=== PATIENT | female | born 1985 | race Caucasian/White ===

== ENCOUNTER 2019-07-05 21:03 | Emergency (ER) | payer OTHER, SELFPAY ==
--- NOTE | 2019-07-05 22:44 | ER ---
Nurse's Notes [facility] Name: Emerald Alejandro Age: 34 yrs Sex: Female : 1985 Arrival Date: 07/05/2019 Time: 21:07 Bed Waiting Private MD: Diagnosis: ED Course: 07/05 21:07 Patient arrived in ED. am2 21:49 Patient's name was called from ER lobby. No response. pipo 21:55 Harmony Hernandez, RN is Primary Nurse. ca1 22:00 Patient's name was called from ER lobby. No response. bb 22:43 Patient's name was called from ER lobby. No response. Unable to locate patient. Will bb disposition as left without being seen by a provider. Administered Medications: No medications were administered Outcome: 22:43 Patient left the ED. bb Signatures: Carissa Coles RN RN ajAnnmarie Coronado RN RN bb Lydia Moore am2 Harmony Hernandez, RN RN ca1
== END 2019-07-05 22:43 | disposition left against medical advice (07) ==
LOC: ER 21:03
DX: Z02.9 Encounter for administrative examinations, unspecified (principal)

== ENCOUNTER 2019-12-21 09:54 | Emergency (ER) | payer SELFPAY ==
--- OUTSIDE RECORDS SUMMARY | 2019-12-21 09:56 | XMS REPORT ---
:1985 [facility] Address [address] [place] [address] Dr. Castañeda. [address] [place] [id number] Care Team Providers Name Role Phone DR ISIS CASTREJON Unavailable Unavailable TRACEY LAMB Unavailable Unavailable Problems This patient has no known problems. Allergies, Adverse Reactions, Alerts This patient has no known allergies or adverse reactions. Medications This patient has no known medications. Encounters Start End Encounter Admission Attending Care Care Encounter Date/Time Date/Time Type Type Clinicians Facility Department ID 2019-04-15 2019-04-15 Emergency E [facility] [id number] 10:36:00 10:36:00 2019-02-08 2019-02-08 Emergency E [facility] [id number] 13:12:00 13:12:00 2018-03-28 2018-03-28 Outpatient [facility] [id number] 08:23:00 10:35:00 ISIS Results Test Description Test Time Test Comments Text Results Atomic Results Result Comments CBC W/PLT COUNT & AUTO DIFFERENTIAL 2017-06-17 17:45:00 Test Item Value Reference Range Comments WHITE BLOOD CELL COUNT (BEAKER) (test rtwl=728) 6.2 K/ L 4.0-10.0 RED BLOOD CELL COUNT (BEAKER) (test nmni=966) 5.00 M/ L 4.00-5.00 HEMOGLOBIN (BEAKER) (test kkoy=488) 12.0 GM/DL 12.0-15.0 HEMATOCRIT (BEAKER) (test rpxr=851) 37.6 % 36.0-45.0 MEAN CORPUSCULAR VOLUME (BEAKER) (test kzop=997) 75.1 fL 82.0-99.0 MEAN CORPUSCULAR HEMOGLOBIN (BEAKER) (test nwws=235) 24.0 pg 27.0-33.0 MEAN CORPUSCULAR HEMOGLOBIN CONC (BEAKER) (test pbaw=139) 32.0 GM/DL 32.0- 36.0 RED CELL DISTRIBUTION WIDTH (BEAKER) (test vyih=595) 15.1 % 10.3-14.2 PLATELET COUNT (BEAKER) (test iiuw=660) 352 K/CU MM 150-430 MEAN PLATELET VOLUME (BEAKER) (test xhgl=029) 7.7 fL 6.5-10.5 NUCLEATED RED BLOOD CELLS (BEAKER) (test atzs=894) 0 /100 WBC 0-0 NEUTROPHILS RELATIVE PERCENT (BEAKER) (test nndb=930) 68 % LYMPHOCYTES RELATIVE PERCENT (BEAKER) (test ovrl=607) 25 % MONOCYTES RELATIVE PERCENT (BEAKER) (test jufv=096) 5 % EOSINOPHILS RELATIVE PERCENT (BEAKER) (test bhvo=312) 1 % BASOPHILS RELATIVE PERCENT (BEAKER) (test uidr=592) 1 % NEUTROPHILS ABSOLUTE COUNT (BEAKER) (test bjjt=488) 4.20 K/ L 1.80-8.00 LYMPHOCYTES ABSOLUTE COUNT (BEAKER) (test xilr=574) 1.60 K/ L 1.48-4.50 MONOCYTES ABSOLUTE COUNT (BEAKER) (test jkci=477) 0.30 K/ L 0.00-1.30 EOSINOPHILS ABSOLUTE COUNT (BEAKER) (test iuxw=670) 0.10 K/ L 0.00-0.50 BASOPHILS ABSOLUTE COUNT (BEAKER) (test pfss=253) 0.00 K/ L 0.00-0.20 (MANUAL DIFFERENTIAL)2017-06-17 17:45:00 Test Item Value Reference Range Comments TOTAL COUNTED (BEAKER) (test kijw=6589) WBC MORPHOLOGY (BEAKER) (test tmkp=222) Normal PLT MORPHOLOGY (BEAKER) (test crho=166) Normal ELLIPTOCYTES (BEAKER) (test whky=235) 1+ few HYPOCHROMIA (BEAKER) (test rlcm=795) 1+ few COMPREHENSIVE METABOLIC [id number] 16:26:00 Test Item Value Reference Range Comments TOTAL PROTEIN (BEAKER) 7.9 gm/dL 6.0-8.5 (test qjty=176) ALBUMIN (BEAKER) (test 4.0 g/dL 3.5-5.0 inje=0573) ALKALINE PHOSPHATASE 76 U/L 30-115 (BEAKER) (test bovx=910) BILIRUBIN TOTAL (BEAKER) 0.3 mg/dL 0.1-1.2 (test hkzt=742) SODIUM (BEAKER) (test 136 meq/L 135-148 odle=748) POTASSIUM (BEAKER) (test 4.2 meq/L 3.6-5.5 hxmq=068) CHLORIDE (BEAKER) (test 105 meq/L 98-106 ujnj=025) CO2 (BEAKER) (test 17 meq/L 20-29 bpel=518) BLOOD UREA NITROGEN 14 mg/dL 10-26 (BEAKER) (test ocap=226) CREATININE (BEAKER) (test 0.80 mg/dL 0.50-1.20 ynwx=838) GLUCOSE RANDOM (BEAKER) 102 mg/dL 70-110 (test soeh=766) CALCIUM (BEAKER) (test 9.6 mg/dL 8.5-10.5 sgmi=385) AST (SGOT) (BEAKER) (test 21 U/L 5-40 bwjm=744) ALT (SGPT) (BEAKER) (test 16 U/L 5-50 sagx=702) EGFR (BEAKER) (test mL/min/1.73 sq m INSUFFICIENT CLINICAL DATA rypl=8205) TO CALCULATE ESTIMATED GFR. [id number] 16:26:00 Test Item Value Reference Range Comments MAGNESIUM (BEAKER) (test dgdb=193) 2.4 mg/dL 1.5-3.0 [id number] 16:26:00 Test Item Value Reference Range Comments PHOSPHORUS (BEAKER) (test mdty=844) 3.6 mg/dL 2.5-4.5 RAPID DRUG SCREEN, [id number] 16:12:00 Test Item Value Reference Range Comments METHAMPHETAMINE SCREEN (BEAKER) (test hros=8030) Negative Negative BARBITURATE URINE (BEAKER) (test qleo=518) Negative Negative BENZODIAZEPINE SCREEN URINE (BEAKER) (test Positive Negative bsnb=572) COCAINE (METAB.) SCREEN (BEAKER) (test asfh=8237) Negative Negative OPIATE SCREEN URINE (BEAKER) (test hfry=772) Positive Negative CANNABINOID SCREEN URINE (BEAKER) (test sjcn=237) Negative Negative AMPHETAMINE SCREEN URINE (BEAKER) (test tfcx=260) Negative Negative PHENCYCLIDINE SCREEN URINE (BEAKER) (test nvbs=105) Negative Negative DRUG CUTOFF CONC.Cocaine 300 ng/mL Cannabinoid 50 ng/mLBenzodiazepine 200 ng/mLBarbiturate 200 ng/ mLPhencyclidine 25 ng/mLOpiate 300 ng/mLMethadone 300 ng/mLAmphetamine/ 1000 ng/mL MethamphetamineThis assay provides an unconfirmed qualitative test result for the clinical management of patients in emergency situations. Chain of custody not maintained. Some tdwp-cck-fdtkpay medications, as well as adulterants, may cause inaccurate results. Clinical correlation should be applied. A more comprehensivedrug screen or confirmation of a detected drug may be performed upon request.URINALYSIS W/ [id number] 16:03:00 Test Item Value Reference Range Comments COLOR (BEAKER) (test ztcv=933) Yellow CLARITY (BEAKER) (test aiap=636) Clear SPECIFIC GRAVITY UA (BEAKER) (test ihck=056) <= 1.001-1.035 PH UA (BEAKER) (test tlrd=940) 6.0 5.0-8.0 PROTEIN UA (BEAKER) (test uqxp=891) Negative Negative GLUCOSE UA (BEAKER) (test qoti=969) Negative Negative KETONES UA (BEAKER) (test dxgc=710) Negative Negative BILIRUBIN UA (BEAKER) (test zxzw=314) Negative Negative BLOOD UA (BEAKER) (test kazv=139) Negative Negative NITRITE UA (BEAKER) (test duol=248) Negative Negative LEUKOCYTE ESTERASE UA (BEAKER) (test lnee=748) Negative Negative UROBILINOGEN UA (BEAKER) (test gnlj=765) 0.2 mg/dL 0.2-1.0 BACTERIA (BEAKER) (test bvnc=731) Few RBC UA-MANUAL (BEAKER) (test uiyg=9392) <5 /HPF WBC UA-MANUAL (BEAKER) (test gmaa=8565) <5 /HPF SQUAMOUS EPITHELIAL MANUAL (BEAKER) (test 10-20 /HPF jckv=5698) SOURCE(BEAKER) (test akoi=6602)
--- OUTSIDE RECORDS SUMMARY | 2019-12-21 09:57 | XMS REPORT | Summary of Care ---
:1985 Author Organization [facility] Address [address] [place] [address] Care Team Providers Name Role Phone Pcp, Patient Does Not Have A Primary Care Provider Reason for Visit Reason Comments Refill Request Encounter Details Date Type Department Care Team Description 06/14/2019 Refill [facility] Orthopaedic Desiree Oseguera FNP Refill Request Surgery- [address], [address] [place] [address] [place] [phone] Allergies Active Allergy Reactions Severity Noted Date Comments Tramadol Itching, Rash 05/18/2016 documented as of this encounter (statuses as of 06/19/2019) Medications Medication Sig Dispensed Refills Start Date End Date Status Multivitamins Take by mouth. 0 Active (CHEWABLE-CORINNE) ChewIndications: General counseling for initiation of other contraceptive measures gabapentin 300 mg Take 600 mg by 0 Active capsule mouth 3 (three) times daily. clonazePAM (KLONOPIN) 1 Take 1 mg by 0 Active mg tablet mouth 3 (three) times daily. progesterone 100 mg Take 200 mg by 0 Active capsule mouth daily. estradiol 1 mg tablet Take 2 mg by 0 Active mouth daily. methylPREDNISolone 4 mg Take by mouth 21 Each 0 12/13/2018 Active tabletsIndications: SEE-INSTRUCTIONS Facet arthropathy, . follow package lumbar, DDD directions (degenerative disc disease), lumbar, Chronic bilateral low back pain with bilateral sciatica, Osteoarthritis of spine with radiculopathy, lumbar region cyclobenzaprine 5 mg Take 1 tablet by 60 tablet 1 12/13/2018 Active tabletIndications: Facet mouth at bedtime arthropathy, lumbar, DDD as needed for (degenerative disc Muscle Spasms. disease), lumbar, Chronic bilateral low back pain with bilateral sciatica, Osteoarthritis of spine with radiculopathy, lumbar region ranitidine (ZANTAC) 150 Take 1 tablet by 30 tablet 1 04/27/2019 Active mg tabletIndications: mouth 2 (two) Chest pain, unspecified times daily. type, GERD with Follow up with esophagitis your MD for further evaluation and treatment. documented as of this encounter (statuses as of 06/19/2019) Active Problems Problem Noted Date Hilar lymphadenopathy 12/03/2018 Overview: Added automatically from request for surgery [id number] Pneumonia 11/03/2018 Sepsis 11/02/2018 Obesity (BMI 30-39.9) 10/03/2016 Tobacco use disorder 02/18/2014 Overview: Patient reports she has cut down drastically and plans to completely quit within the next week. Morbid obesity 02/14/2014 History of abnormal Pap smear 02/14/2014 History of ovarian cyst 02/14/2014 Irregular menstrual cycle 02/14/2014 Overview: ER visit 07/05/2014 Transvaginal pelvic ultrasound: Impression: 1. No evidence of endometrial mass ; filling defect or abnormal endometrial fluid. 2.No abnormal adnexal masses or fluid collections. 3.No evidence of intrauterine Hgb at 7.6 Blood type O + IAT neg documented as of this encounter (statuses as of 06/19/2019) Resolved Problems Problem Noted Date Resolved Date Nexplanon insertion 02/18/2014 07/08/2014 Overview: Exp. 02/18/2017 General counseling for initiation of other contraceptive 02/14/20142013 measures documented as of this encounter (statuses as of 06/19/2019) Immunizations Name Administration Dates Next Due Influenza Virus Vaccine Quad .5 mL IM 6+ MO 10/04/2018 Td 2010 documented as of this encounter Social History Tobacco Use Types Packs/Day Years Used Date Former Smoker Cigarettes 0.3 5 10/04/2010 - 10/04/2016 Smokeless Tobacco: Former User Quit: 09/03/2018 Alcohol Use Drinks/Week oz/Week Comments Yes rare Sex Assigned at Date Recorded Not on file Job Start Date Occupation Industry Not on file Not on file Not on file Travel History Travel Start Travel End No recent travel history available. documented as of this encounter Last Filed Vital Signs Not on filedocumented in this encounter Plan of Treatment Health Maintenance Due Date Last Done Comments PNEUMOCOCCAL 0-64 YEARS COMBINED 1989 SERIES (1 of 1 - PPSV23) VARICELLA VACCINES (1 of 2 - 13+ 1996 2-dose series) DTaP,Tdap,and Td Vaccines (1 - 05/26/2010 2010 Tdap) PAP SMEAR 09/08/2017 09/08/2014 (Time variation acceptable), 02/14/2014, 06/29/2010, Additional history exists INFLUENZA VACCINE 07/07/2019 10/04/2018 documented as of this encounter Results Not on filedocumented in this encounter Visit Diagnoses Diagnosis Facet arthropathy, lumbar Lumbosacral spondylosis without myelopathy DDD (degenerative disc disease), lumbar Degeneration of lumbar or lumbosacral intervertebral disc Chronic bilateral low back pain 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 I ISABEL SZYMANSKI [id number] 2018-Pres [phone] [facility] [address] [place] [address] ISABEL HALL [id number] 2018-Pres [phone] [facility] PRIMARY CARE PRIMARY CARE ent [address] [place] [address] documented as of this encounter
[2019-12-21] MEDS ORDERED: NA CHLORIDE 0.9% 1,000 ML ONE (10:30)
[2019-12-21] MEDS ORDERED: ONDANSETRON 4 MG/2 ML VIAL ONE (10:30)
[2019-12-21 10:34] LABS: Absolute Lymphocytes (CBC) 1.9 K/uL (0.7-4.9); Basophils % 0.7 % (0-1.3); Hematocrit 36.6 % (36.0-45.0); Lymphocytes % 29.2 % (15.3-44.8); MPV 8.3 fL (7.6-11.3); RBC Red Blood Cell Count 5.24 M/uL (3.86-4.86)
[2019-12-21 10:49] LABS: ALT/SGPT 13 U/L (12-78); AST/SGOT 12 U/L (15-37); Albumin 3.3 g/dL (3.4-5.0); Alkaline Phosphatase 83 U/L (45-117); BUN Blood Urea Nitrogen 17 mg/dL (7-18); Bicarbonate 29 mmol/L (21-32); Bilirubin Direct < 0.1 mg/dL (0-0.2); Bilirubin Total 0.4 mg/dL (0.2-1.0); Glucose Level 91 mg/dL (74-106); Lipase 59 U/L (73-393); Potassium 4.2 mmol/L (3.5-5.1); Protein, Total 7.8 g/dL (6.4-8.2); Sodium Level 141 mmol/L (136-145)
--- NOTE | 2019-12-21 11:05 | ER ---
Nurse's Notes [facility] Name: Emerald Alejandro Age: 34 yrs Sex: Female : 1985 Arrival Date: 12/21/2019 Time: 09:56 Bed 15 Private MD: Diagnosis: Vomiting;Diarrhea, unspecified Presentation: 12/21 10:06 Presenting complaint: Patient states: N/V/D and low grade fever since yesterday. Denies aj1 abdominal pain, reports back pain. Transition of care: patient was not received from another setting of care. Onset of symptoms was December 20, 2019 at 03:00. Risk Assessment: Do you want to hurt yourself or someone else? Patient reports no desire to harm self or others. Initial Sepsis Screen: Does the patient meet any 2 criteria? No. Patient's initial sepsis screen is negative. Does the patient have a suspected source of infection? No. Patient's initial sepsis screen is negative. Care prior to arrival: None. 10:06 Method Of Arrival: Ambulatory aj1 10:06 Acuity: DIANE 3 aj1 Triage Assessment: 10:11 General: Appears in no apparent distress. uncomfortable, Behavior is calm, cooperative, aj1 appropriate for age. Pain: Complains of pain in back. GI: Reports diarrhea, nausea, vomiting. 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 - Coronavirus screen:: The patient has NOT traveled to [place] in the past 14 days. - Social history:: Smoking status: Patient/guardian denies using tobacco. - Ebola Screening: : Patient denies travel to an Ebola-affected area in the 21 days before illness onset. Screenin:13 Abuse screen: Denies threats or abuse. Denies injuries from another. Nutritional aj1 screening: No deficits noted. Tuberculosis screening: No symptoms or risk factors identified. 12:10 Fall Risk None identified. aj1 Assessment: 10:13 General: Appears in no apparent distress. uncomfortable, Behavior is calm, cooperative, aj1 appropriate for age. Pain: Complains of pain in back Pain does not radiate. Pain currently is 4 out of 10 on a pain scale. Quality of pain is described as aching. Neuro: Level of Consciousness is awake, alert, obeys commands, Oriented to person, place, time, situation. Cardiovascular: Patient's skin is warm and dry. Respiratory: Airway is patent Respiratory effort is even, unlabored, Respiratory pattern is regular, symmetrical. GI: Abdomen is non-distended, Reports diarrhea, nausea, vomiting. : No signs and/or symptoms were reported regarding the genitourinary system. EENT: No signs and/or symptoms were reported regarding the EENT system. Derm: No signs and/or symptoms reported regarding the dermatologic system. Skin is pink, warm \T\ dry. normal. Musculoskeletal: No signs and/or symptoms reported regarding the musculoskeletal system. Circulation, motion, and sensation intact. 11:15 Reassessment: Patient appears in no apparent distress at this time. No changes from aj1 previously documented assessment. Patient and/or family updated on plan of care and expected duration. Pain level reassessed. Patient is alert, oriented x 3, equal unlabored respirations, skin warm/dry/pink. 11:31 Reassessment: Discharge pending completion of IV fluids. aj1 12:10 Reassessment: Patient appears in no apparent distress at this time. No changes from aj1 previously documented assessment. Patient and/or family updated on plan of care and expected duration. Pain level reassessed. Patient is alert, oriented x 3, equal unlabored respirations, skin warm/dry/pink. Vital Signs: 10:11 BP 134 / 97; Pulse 76; Resp 18; Temp 97.6; Pulse Ox 99% on R/A; Weight 136.08 kg (R); aj1 Height 5 ft. 11 in. (180.34 cm) (R); Pain 4/10; 11:15 BP 119 / 83; Pulse 59; Resp 18; Pulse Ox 97% on R/A; aj1 10:11 Body Mass Index 41.84 (136.08 kg, 180.34 cm) aj1 ED Course: 09:56 Patient arrived in ED. mr 10:02 Eugene Gamble MD is Attending Physician. madiha 10:06 Carissa Coles, RN is Primary Nurse. aj1 10:07 Triage completed. aj1 10:11 Arm band placed on. aj1 10:13 Patient has correct armband on for positive identification. Bed in low position. Call aj1 light in reach. Side rails up X 1. 10:13 No provider procedures requiring assistance completed. aj1 10:23 Initial lab(s) drawn, by me, sent to lab. Inserted saline lock: 22 gauge in right aj1 antecubital area, using aseptic technique. Blood collected. 12:10 IV discontinued, intact, bleeding controlled, No redness/swelling at site. Pressure aj1 dressing applied. Administered Medications: 10:31 Drug: NS 0.9% 1000 ml Route: IV; Rate: 1 bolus; Site: right antecubital; aj1 12:09 Follow up: IV Status: Completed infusion; IV Intake: 1000ml aj1 10:31 Drug: Zofran 4 mg Route: IVP; Site: right antecubital; aj1 12:09 Follow up: Response: No adverse reaction aj1 Intake: 12:09 IV: 1000ml; Total: 1000ml. aj1 Outcome: 11:04 Discharge ordered by . [facility] 12:10 Discharged to home ambulatory. aj1 12:10 Condition: good 12:10 Discharge instructions given to patient, Instructed on discharge instructions, follow up and referral plans. medication usage, Demonstrated understanding of instructions, follow-up care, medications, Prescriptions given X 1. 12:11 Patient left the ED. aj1 Signatures: Carissa Coles, AWILDA RN aj1 Eugene Gamble MD MD cha Rivera Lorie mr
--- NOTE | 2019-12-21 11:05 | EDPHYS ---
Physician Documentation [facility] Name: Emerald Alejandro Age: 34 yrs Sex: Female : 1985 Arrival Date: 12/21/2019 Time: 09:56 Bed 15 Private MD: ROLDAN Physician Eugene Gamble HPI: 12/21 10:33 This 34 yrs old Female presents to ER via Ambulatory with complaints of madiha Nausea/Vomiting/Diarrhea, Fever. 10:33 The patient presents to the emergency department with nausea, vomiting, diarrhea, that madiha is continuous. Onset: The symptoms/episode began/occurred 1 day(s) ago. Possible causes: unknown. The symptoms are aggravated by nothing. The symptoms are alleviated by nothing. Associated signs and symptoms: The patient has no apparent associated signs or symptoms. Severity of symptoms: At their worst the symptoms were mild. The patient has not experienced similar symptoms in the past. 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 - Coronavirus screen:: The patient has NOT traveled to [place] in the past 14 days. - Social history:: Smoking status: Patient/guardian denies using tobacco. - Ebola Screening: : Patient denies travel to an Ebola-affected area in the 21 days before illness onset. ROS: 10:33 Constitutional: Negative for fever, chills, and weight loss, Eyes: Negative for injury, madiha pain, redness, and discharge, ENT: Negative for injury, pain, and discharge, Neck: Negative for injury, pain, and swelling, Cardiovascular: Negative for chest pain, palpitations, and edema, Respiratory: Negative for shortness of breath, cough, wheezing, and pleuritic chest pain, Back: Negative for injury and pain, : Negative for injury, bleeding, discharge, and swelling, MS/Extremity: Negative for injury and deformity, Skin: Negative for injury, rash, and discoloration, Neuro: Negative for headache, weakness, numbness, tingling, and seizure, Psych: Negative for depression, anxiety, suicide ideation, homicidal ideation, and hallucinations, Allergy/Immunology: Negative for hives, rash, and allergies, Endocrine: Negative for neck swelling, polydipsia, polyuria, polyphagia, and marked weight changes, Hematologic/Lymphatic: Negative for swollen nodes, abnormal bleeding, and unusual bruising. 10:33 Abdomen/GI: Positive for nausea and vomiting, diarrhea. Exam: 10:34 Constitutional: This is a well developed, well nourished patient who is awake, alert, madiha and in no acute distress. Head/Face: Normocephalic, atraumatic. Eyes: Pupils equal round and reactive to light, extra-ocular motions intact. Lids and lashes normal. Conjunctiva and sclera are non-icteric and not injected. Cornea within normal limits. Periorbital areas with no swelling, redness, or edema. ENT: Nares patent. No nasal discharge, no septal abnormalities noted. Tympanic membranes are normal and external auditory canals are clear. Oropharynx with no redness, swelling, or masses, exudates, or evidence of obstruction, uvula midline. Mucous membranes moist. Neck: Trachea midline, no thyromegaly or masses palpated, and no cervical lymphadenopathy. Supple, full range of motion without nuchal rigidity, or vertebral point tenderness. No Meningismus. Chest/axilla: Normal chest wall appearance and motion. Nontender with no deformity. No lesions are appreciated. Cardiovascular: Regular rate and rhythm with a normal S1 and S2. No gallops, murmurs, or rubs. Normal PMI, no JVD. No pulse deficits. Respiratory: Lungs have equal breath sounds bilaterally, clear to auscultation and percussion. No rales, rhonchi or wheezes noted. No increased work of breathing, no retractions or nasal flaring. Abdomen/GI: Soft, non-tender, with normal bowel sounds. No distension or tympany. No guarding or rebound. No evidence of tenderness throughout. Back: No spinal tenderness. No costovertebral tenderness. Full range of motion. Skin: Warm, dry with normal turgor. Normal color with no rashes, no lesions, and no evidence of cellulitis. MS/ Extremity: Pulses equal, no cyanosis. Neurovascular intact. Full, normal range of motion. Neuro: Awake and alert, GCS 15, oriented to person, place, time, and situation. Cranial nerves II-XII grossly intact. Motor strength 5/5 in all extremities. Sensory grossly intact. Cerebellar exam normal. Normal gait. Psych: Awake, alert, with orientation to person, place and time. Behavior, mood, and affect are within normal limits. Vital Signs: 10:11 BP 134 / 97; Pulse 76; Resp 18; Temp 97.6; Pulse Ox 99% on R/A; Weight 136.08 kg (R); aj1 Height 5 ft. 11 in. (180.34 cm) (R); Pain 4/10; 11:15 BP 119 / 83; Pulse 59; Resp 18; Pulse Ox 97% on R/A; aj1 10:11 Body Mass Index 41.84 (136.08 kg, 180.34 cm) [facility] MDM: 10:02 Patient medically screened. [facility] 10:35 Data reviewed: vital signs, nurses notes, lab test result(s). [facility] 12/21 10:03 Order name: Basic Metabolic Panel [facility] 12/21 10:03 Order name: CBC with Diff [facility] 12/21 10:03 Order name: Creatinine for Radiology [facility] 12/21 10:03 Order name: Hepatic Function [facility] 12/21 10:03 Order name: Lipase [facility] 12/21 10:04 Order name: Stool Culture [facility] 12/21 10:04 Order name: Fecal Leukocyte Stain [facility] 12/21 10:35 Order name: CBC with Automated Diff [facility] 12/21 10:49 Order name: Creatinine (Radiology Only); Complete Time: 11: [facility] 12/21 10:50 Order name: Basic Metabolic Panel; Complete Time: 11: [facility] 12/21 10:50 Order name: Liver (Hepatic) Function; Complete Time: 11:03 [facility] 12/21 10:50 Order name: Lipase; Complete Time: 11: [facility] 12/21 11:26 Order name: CBC Smear Scan [facility] 12/21 10:03 Order name: IV Saline Lock; Complete Time: 10:23 [facility] 12/21 10:03 Order name: Labs collected and sent; Complete Time: 10:23 [facility] Administered Medications: 10:31 Drug: NS 0.9% 1000 ml Route: IV; Rate: 1 bolus; Site: right antecubital; [facility] 12:09 Follow up: IV Status: Completed infusion; IV Intake: 1000ml [facility] 10:31 Drug: Zofran 4 mg Route: IVP; Site: right antecubital; [facility] 12:09 Follow up: Response: No adverse reaction [facility] Disposition: 12/21/19 11:04 Discharged to Home. Impression: Vomiting, Diarrhea, unspecified. - Condition is Fair. - Discharge Instructions: Food Choices to Help Relieve Diarrhea, Adult, Diarrhea, Adult, Nausea and Vomiting, Adult, Nausea and Vomiting, Adult, [id number], Diarrhea, Adult, [id number]. - Prescriptions for Zofran 4 mg Oral Tablet - take 1 tablet by ORAL route every 12 hours As needed; 20 tablet. - Work release form, Medication Reconciliation Form, Thank You Letter, Antibiotic Education, Prescription Opioid Use form. - Follow up: Private Physician; When: 2 - 3 days; Reason: Recheck today's complaints, Continuance of care, Re-evaluation by your physician. - Problem is new. - Symptoms have improved. Signatures: Dispatcher [employer] EDCarissa Walker RN RN aj1 Eugene Gamble MD MD cha Corrections: (The following items were deleted from the chart) 12:11 11:04 12/21/2019 11:04 Discharged to Home. Impression: Vomiting; Diarrhea, unspecified. [facility] Condition is Fair. Discharge Instructions: Food Choices to Help Relieve Diarrhea, Adult, Diarrhea, Adult, Nausea and Vomiting, Adult, Nausea and Vomiting, Adult, [id number], Diarrhea, Adult, [id number]. Prescriptions for Zofran 4 mg Oral Tablet - take 1 tablet by ORAL route every 12 hours As needed; 20 tablet. and Forms are Medication Reconciliation Form, Thank You Letter, Antibiotic Education, Prescription Opioid Use. Follow up: Private Physician; When: 2 - 3 days; Reason: Recheck today's complaints, Continuance of care, Re-evaluation by your physician. Problem is new. Symptoms have improved. madiha
[2019-12-21 11:25] LABS: Blood Morphology Comment NOTED (NOT SEEN); Hypochromasia 1+; Platelet Estimate ADEQ; Urine White Blood Cell Casts OK
[2019-12-21 13:47] VITALS: TEMP 97.6
[2019-12-21 13:49] VITALS: BP 119/83; O2SAT 97
== END 2019-12-21 12:11 | disposition home or self-care (01) ==
LOC: ER 09:54
DX: R11.2 Nausea with vomiting, unspecified (principal); R19.7 Diarrhea, unspecified; F41.8 Other specified anxiety disorders; Z88.6 Allergy status to analgesic agent
CPT/HCPCS: 36415; 80048; 80076; 83690; 85025; 96361; 96374; 99284; J2405; J7030

== ENCOUNTER 2020-03-19 11:13 | Emergency (ER) | payer SELFPAY ==
--- OUTSIDE RECORDS SUMMARY | 2020-03-19 11:53 | XMS REPORT | Clinical Summary ---
:1985 Author Organization [facility] Address [address] [place] [id number] Care Team Providers Name Role Phone Nicolette Lara MD Primary Care Provider Unavailable Allergies No Known Allergies Medications Medication Sig Dispensed Refills Start Date End Date Status ALPRAZolam (XANAX) 0.25 Take 0.25 mg by 0 Active MG tablet mouth 3 (three) times daily as needed for Anxiety. traMADol (ULTRAM) 50 mg Take 50 mg by 0 Active tablet mouth every 6 (six) hours as needed for Pain. cyclobenzaprine Take 10 mg by 0 Active (FLEXERIL) 10 MG tablet mouth 3 (three) times daily as needed for Muscle spasms. HYDROcodone-acetaminophen Take 1 tablet 0 Active (NORCO 5-325) 5-325 mg by mouth every per tablet 6 (six) hours as needed for Pain. Active Problems Not on file Social History Tobacco Use Types Packs/Day Years Used Date Never Smoker Alcohol Use Drinks/Week oz/Week Comments No Sex Assigned at Date Recorded Not on file Job Start Date Occupation Industry Not on file Not on file Not on file Travel History Travel Start Travel End No recent travel history available. Last Filed Vital Signs Not on file Plan of Treatment Not on file Results Not on fileafter 03/19/2019 Insurance Payer Benefit Plan / Group Subscriber ID Type Phone A ddress [facility] HMO POS SELECT xxxxxxxxx HMO/POS CARE CHOICE
--- OUTSIDE RECORDS SUMMARY | 2020-03-19 11:53 | XMS REPORT | Clinical Summary ---
:1985 Author Organization [facility] Address [address] [place] [address] Care Team Providers Name Role Phone Asked, No Pcp Primary Care Provider Unavailable Allergies Active Allergy Reactions Severity Noted Date Comments Methocarbamol 05/01/2019 Nabumetone Other (See Comments) 06/19/2017 Chills, night sweats, tremors Tramadol 08/19/2016 Medications Medication Sig Dispensed Refills Start Date End Date Status estradiol (ESTRACE) 1 Take 2 mg by 0 Active MG tablet mouth daily. progesterone Take 200 mg by 0 Ac tive (PROMETRIUM) 200 MG mouth daily. capsule gabapentin (NEURONTIN) Take 600 mg by 0 Active 300 MG capsule mouth 3 (three) times a day. FLUoxetine (PROzac) 10 Take 10 mg by 0 Active MG capsule mouth daily. omeprazole (PriLOSEC) Take 20 mg by 0 Active 20 MG capsule mouth daily. ranitidine (ZANTAC) 150 Take 150 mg by 0 Active MG tablet mouth 2 (two) times a day. ibuprofen Take 800 mg by 0 Activ e (ADVIL,MOTRIN) 800 MG mouth every 6 tablet (six) hours as needed for mild pain. cyclobenzaprine Take 1 tablet 20 tablet 0 05/01/2019 9 (FLEXERIL) 10 mg tablet (10 mg total) by mouth 2 (two) times a day as needed for muscle spasms for up to 30 days. predniSONE (DELTASONE) Take 2 tablets 10 tablet 0 05/01/2019 0 05/06/2019 10 mg tablet (20 mg total) by mouth daily for 5 days. Active Problems Problem Noted Date Syncope and collapse 10/06/2016 Encounters Date Type Specialty Care Team Description 05/01/2019 Emergency Emergency Medicine Tracey, FacundoHailey Guerrero eft-sided low back pain with bilateral sciatica, unspecified chronicity (Primary Dx); Vasovagal synco pe 05/01/2019 Travel after 03/19/2019 Social History Tobacco Use Types Packs/Day Years Used Date Current Some Day Smoker Smokeless Tobacco: Never Used Alcohol Use Drinks/Week oz/Week Comments No Sex Assigned at Date Recorded Not on file Job Start Date Occupation Industry Not on file Not on file Not on file Travel History Travel Start Travel End No recent travel history available. Last Filed Vital Signs Vital Sign Reading Time Taken Comments Blood Pressure 132/77 05/01/2019 2:30 PM CDT Pulse 76 05/01/2019 2:30 PM CDT Temperature 37.1 C (98.7 F) 05/01/2019 2:30 PM CDT Respiratory Rate 20 05/01/2019 2:30 PM CDT Oxygen Saturation 94% 05/01/2019 2:30 PM CDT Inhaled Oxygen Concentration - - Weight 119 kg (263 lb) 05/01/2019 11:44 AM CDT Height 180.3 cm (5' 11") 05/01/2019 11:44 AM CDT Body Mass Index 36.68 05/01/2019 11:44 AM CDT Plan of Treatment Health Maintenance Due Date Last Done Comments CERVICAL CANCER SCREENING 2004 INFLUENZA VACCINE 06/06/2020 Procedures Procedure Name Priority Date/Time Associated Comments Diagnosis CT LUMBAR SPINE WO STAT 05/01/2019 1:38 Resul ts for this CONTRAST PM CDT procedure are i n the results section. CT HEAD WO CONTRAST STAT 05/01/2019 1:36 Resu lts for this PM CDT procedure are i n the results section. HCG QUALITATIVE, URINE STAT 05/01/2019 12:41 R esults for this SCREEN PM CDT procedure are i n the results section. URINALYSIS STAT 05/01/2019 12:41 Results for this PM CDT procedure are i n the results section. ESTIMATED GFR STAT 05/01/2019 12:30 Results fo r this PM CDT procedure are i n the results section. B NATRIURETIC PEP, STAT 05/01/2019 12:30 Resul ts for this I-STAT PM CDT procedure are i n the results section. CREATINE KINASE, TOTAL STAT 05/01/2019 12:30 R esults for this (CPK) PM CDT procedure are i n the results section. TROPONIN, I-STAT STAT 05/01/2019 12:30 Results for this PM CDT procedure are i n the results section. COMPREHENSIVE STAT 05/01/2019 12:30 Results fo r this METABOLIC PANEL PM CDT procedure ar e in the results section. HC COMPLETE BLD COUNT STAT 05/01/2019 12:30 Re sults for this W/AUTO DIFF PM CDT procedure are i n the results section. ECG 12-LEAD STAT 05/01/2019 12:23 Results for this PM CDT procedure are i n the results section. GRAM STAIN Routine 05/01/2019 12:17 Results for this PM CDT procedure are i n the results section. URINE CULTURE Routine 05/01/2019 12:17 Results fo r this PM CDT procedure are i n the results section. after 03/19/[address] Lumbar Spine Wo Contrast (05/01/2019 1:38 PM CDT) Specimen Narrative Performed At EXAMINATION: CT LUMBAR SPINE WO CONTRA ST [facility] COMPARISON: None CLINICAL HISTORY: L S-spine fx traum atic COMMENTS: Axial CT scan slices of the lumbar spine w ere obtained. Sagittal and coronal reconstructions wer e obtained. CT imaging was performed with iterative reconstruction technique and/or automated exposure control to reduce rad iation dose. FINDINGS: L5 is partially sacralized with a slightly small disc between L5 and S1. L4-5 shows mild facet disease. There is mild ligament flavum thickening. There is a very shallow but broad-based disc protrusio n greater towards left side. L3-4 shows mild facet disease ligament flavum thickeni ng and disc bulge. Bilateral laminectomy change. L2-3 shows mild facet disease ligament flavum thickeni ng. There is minimal disc bulge. L1-2 shows minimal facet disease. No acute fracture or subluxation. IMPRESSION: No acute fracture of the l umbar spine. [id number] Procedure Note Hm Interface, Radiology Results Incoming - 05/01/2019 1:47 PM CDT EXAMINATION: CT LUMBAR SPINE WO CONTRAST COMPARISON: None CLINICAL HISTORY: L S-spine fx traumat ic COMMENTS: Axial CT scan slices of the l umbar spine were obtained. Sagittal and coronal reconstructions were obtained. CT imaging was performed with iterative reconstruction technique and/or automated exposure control to reduce radiation dose. FINDINGS: L5 is partially sacralized wi th a slightly small disc between L5 and S1. L4-5 shows mild facet disease. There is mild ligament flavum thickening. There is a very shallow but broad-based disc protrusion greater towards left side. L3-4 shows mild facet disease ligament f lavum thickening and disc bulge. Bilateral laminectomy change. L2-3 shows mild facet disease ligament f lavum thickening. There is minimal disc bulge. L1-2 shows minimal facet disease. No acute fracture or subluxation. IMPRESSION: No acute fracture of the isabela mbar spine. [id number] Performing Organization Address City/State/Zipcode Phone Number [facility] [address] [place] [address] CT Head Wo Contrast (05/01/2019 1:36 PM CDT) Specimen Narrative Performed At EXAMINATION: CT HEAD WO CONTRAST [facility] CLINICAL HISTORY: syncope COMPARISON: CT brain dated June 19, 2017 TECHNIQUE: Noncontrast enhanced images of the brain we re obtained from the skull base to the vertex. Both soft tissue and bon e reconstruction algorithms were performed. CT imaging was performed with iterative reconstruction technique and/or automate d exposure control to reduce radiation dos e. FINDINGS: The brain parenchyma has no acute lesion. The kaminski-whi te matter differentiation is preserved. No evidence of acute int ra or extra-axial hemorrhage, mass, mass effect or acute territorial inf arction. There is no acute hydrocephalus. Basal cisterns a re patent. Orbits are intact. There is a lipoma noted in the righ t parietal scalp again identified. No acute soft tissue hematoma or lacerat ion. Paranasal sinuses shows no acute air-flu id levels. Mastoid air cells are clear. No skull fractures or a ggressive bony lesions. IMPRESSION: No acute intracranial abnormality identi fied. [id number] Procedure Note Interface, Radiology Results Incoming - 05/01/2019 1:53 PM CDT EXAMINATION: CT HEAD WO CONTRAST CLINICAL HISTORY: syncope COMPARISON: CT brain dated June 19 TECHNIQUE: Noncontrast enhanced images o f the brain were obtained from the skull base to the vertex. Both soft tissue and bone reconstruction algorithms were performed. CT imaging was performed with iterative reconstruction technique and/or automate d exposure control to reduce radiation dos e. FINDINGS: The brain parenchyma has no acute lesion . The kaminski-white matter differentiation is preserved. No evidence of acute intra or extra-axial hemorrhage, mass, mass effect or acute territorial infarction. There is no acute hydrocephalus. Basal cisterns are patent. Orbits are intact. There is a lipoma not ed in the right parietal scalp again identified. No acute soft tissue hematoma or lacerat ion. Paranasal sinuses shows no acute air-flu id levels. Mastoid air cells are clear. No skull f ractures or aggressive bony lesions. IMPRESSION: No acute intracranial abnormality identi fied. [id number] Performing Organization Address [facility] Phone Number [facility] [address] [place] [address] Urinalysis (05/01/2019 12:41 PM CDT) Glucose, UA Negative Negative [facility] Bilirubin, UA Negative Negative [facility] Ketones, UA Negative Negative [facility] Specific gravity, 1.025 1.001 - 1.035 [facility] Blood, UA Negative Negative [facility] pH, UA 7.0 5.0 - 8.5 [facility] Protein, UA Negative Negative [facility] Urobilinogen, UA <2.0 <2.0 [facility] Nitrite, UA Negative Negative [facility] Leukocyte esterase, Negative Negative [facility] Color, UA Yellow [facility] Appearance, UA Slightly Hazy [facility] Specimen Urine Performing Organization Address [facility] Phone Number DEPARTMENT OF PATHOLOGY AND [address] [place], [place] [address] [facility], [place] [facility] [address] [place] [address] EMERGENCY [facility] hCG qualitative, urine screen (05/01/2019 12:41 PM CDT) hCG qualitative, Negative [facility] urine Comment: [place] Sensitivity of HCG test: 25 mIU/mL [facility] Negative test results in patients suspected CENTER to be should be retested with a sample obtained 48-72 hours later, or by performing a quantitative assay. Specimen Urine Performing Organization Address City/[facility]/Zipcode Phone Number DEPARTMENT OF PATHOLOGY AND [address] [place] [address] [address] [place] [address] [facility] Estimated GFR (05/01/2019 12:30 PM CDT) [facility] Estimated GFR >=90 mL/min/1.73 [facility] Comment: m2 [place] Catergory Units Interpretation [facility] G1 >=90 Normal or high CENTER G2 60-89 Mildly decreased G3a 45-59 Mildly to moderately decreas ed G3b 30-44 Moderately to severely decre ased G4 15-29 Severely decreased G5 <15 Kidney failure The eGFR was calculated using the Chronic Kidney Disea se Epidemiology Collaboration (CKD-EPI) equation. Interpretation is based on recommendations of the National Kidney Foundation-Kidney Disease Outcomes Boaz lity Initiative (NKF-KDOQI) published in 2014. Specimen Plasma specimen Performing Organization Address City/[facility] Phone Number DEPARTMENT OF PATHOLOGY AND [address] [place] [address] [address] [place] [address] EMERGENCY [facility] Troponin, I-Stat (05/01/2019 12:30 PM CDT) [facility] Troponin, I-Stat 0.06 0.00 - 0.08 [facility] Comment: ng/mL [place] 0.09 - 1.49 ng/ml May indicate increa sed risk of acute EMERGENCY CARE coronary syndrome. [place] >=1.5 ng/ml Consistent with acute myocardial infarction. The diagnostic value of a single normal or non-diagnos tic result is questionable. Serial samples at 2-6 hour i ntervals are required to rule out acute myocardial injury. Specimen Plasma specimen Performing Organization Address City/[facility]/Zipcode Phone Number DEPARTMENT PATHOLOGY AND [address] [place] [address] [address] [place] [address] EMERGENCY CARE CENTER B natriuretic pep, I-Stat (05/01/2019 12:30 PM CDT) [facility] nature BNP, I-Stat <20 0 - 100 pg/mL [facility] Specimen Blood Performing Organization Address City/State/Zipcode Phone Number DEPARTMENT OF PATHOLOGY AND [address] [place] [address] [phone] CBC with platelet and differential (05/01/2019 12:30 PM CDT) Pathologist Sig nature WBC 7.37 4.50 - 11.00 k/uL [facility] RBC 4.95 4.20 - 5.50 m/uL [facility] HGB 11.5 (L) 12.0 - 16.0 g/dL [facility] HCT 36.4 (L) 37.0 - 47.0 % [facility] MCV 73.5 (L) 82.0 - 100.0 fL [facility] MCH 23.2 (L) 27.0 - 34.0 pg [facility] MCHC 31.6 31.0 - 37.0 g/dL [facility] RDW - SD 42.0 37.0 - 55.0 fL [facility] MPV 10.7 8.8 - 13.2 fL [facility] Platelet count 319 150 - 400 k/uL [facility] Neutrophils 65.3 39.0 - 69.0 % [facility] Lymphocytes 25.8 25.0 - 45.0 % [facility] Monocytes 7.1 0.0 - 10.0 % [facility] Eosinophils 1.5 0.0 - 5.0 % [facility] Basophils 0.3 0.0 - 1.0 % [facility] Specimen Blood Performing Organization Address City/State/Zipcode Phone Number DEPARTMENT OF PATHOLOGY AND [address] [place] [phone] [place] [address] EMERGENCY [facility] Creatine kinase, total (CPK) (05/01/2019 12:30 PM CDT) Pathologist Sig nature Creatine kinase 70 30 - 190 U/L [facility] Specimen Plasma specimen Performing Organization Address City/State/Zipcode Phone Number DEPARTMENT OF PATHOLOGY AND [address] [place] [phone] Comprehensive metabolic panel (05/01/2019 12:30 PM CDT) Pathologist Sig nature Sodium 142 128 - 145 mEq/L [facility] Potassium 4.6 3.6 - 5.1 mEq/L [facility] CO2 26 18 - 33 mEq/L [facility] Chloride 104 98 - 108 mEq/L [facility] Glucose 95 73 - 118 mg/dL [facility] Calcium 9.5 8.0 - 10.3 mg/dL [facility] BUN 16 7 - 22 mg/dL [facility] Creatinine 0.5 0.5 - 0.9 mg/dL [facility] Alkaline phosphatase 91 42 - 141 U/L [facility] ALT 35 10 - 47 U/L [facility] AST 21 11 - 38 U/L [facility] Total bilirubin 0.5 0.2 - 1.6 mg/dL [facility] Albumin 3.9 3.3 - 5.5 g/dL [facility] Protein 8.0 6.4 - 8.1 g/dL [facility] Anion gap 12@ANIO 7 - 15 mEq/L [facility] A/G ratio 1.0 0.7 - 3.8 [facility] Specimen Plasma specimen Performing Organization Address City/State/Zipcode Phone Number DEPARTMENT OF PATHOLOGY AND [address] [place] [phone] [place] [address] [facility] ECG 12 lead (05/01/2019 12:23 PM CDT) Pathologist Sig nature Ventricular rate 93 [facility] MUSE Atrial rate 93 [facility] MUSE MN interval 148 [facility] MUSE QRSD interval 66 [facility] MUSE QT interval 342 [facility] MUSE QTC interval 425 [facility] MUSE P axis 1 41 [facility] MUSE QRS axis 1 33 [facility] MUSE T wave axis 38 [facility] MUSE EKG impression Normal sinus [facility] MUSE rhythm-Normal ECG-In automated comparison with ECG of 19-JUN-2017 13:34,-No significant change was found- Specimen Narrative Performed At This result has an attachment that is no t available. Performing Organization Address City/[facility] Phone Number [facility] MUSE [address] [place] [address] Gram stain (05/01/2019 12:17 PM CDT) Gram stain result No WBC's [facility] Gram positive rods HOSPITAL Comment: Specimen Information Specimen Source: Urine Specimen Site: Random void Specimen Urine - Random void Performing Organization Address City/[facility] Phone Number [facility] DEPARTMENT OF PATHOLOGY AND [address] [place] [address] [phone] [address] Urine culture (05/01/2019 12:17 PM CDT) Urine culture Mixed sherley 10-5 col/cc [facility] T isolate Comment: HOSPITAL Specimen Information Specimen Source: Urine Specimen Site: Random void Specimen Urine - Random void Performing Organization Address [facility] Cent[facility]ode Phone Number [facility] DEPARTMENT OF PATHOLOGY AND [address] [place] [address] [phone] [address] after 03/19/2019 Insurance Payer Benefit Plan / Subscriber ID Effective Dates Phone Addre ss Type Group CVCP CVCP [place] xxxxxxxxx 2016-Present [address] [facility], [address] [place] [address] Advance Directives For more information, please contact: [phone] Type Date Recorded Patient Quality Checker Explanati on Advance Directives, Living Will and Medical Power of Child Psychology Teacher
--- OUTSIDE RECORDS SUMMARY | 2020-03-19 11:54 | XMS REPORT | Continuity of Care Document ---
:1985 Author Organization [facility] Care Team Providers Name Role Phone [facility] Unavailable Un available Problems Problem Status Onset Classification Date Comments Sourc e Date Reported Hilar Active 12/03/19 06/19/2019 [facility] lymphadenopathy 19 Heal th Pneumonia Active 11/03/20 06/19/2019 [facility] 18 Health Sepsis Active 11/02/20 06/19/2019 [facility] 18 Health Obesity (BMI Active 10/03/20 06/19/2019 [facility] 30-39.9) 16 Health Tobacco use Active 02/19/20 06/19/2019 [facility] disorder 14 Health Morbid obesity Active 02/15/20 06/19/2019 [facility] 14 Health History of abnormal Active 02/15/20 06/19/2019 [facility] Pap smear 14 Health History of ovarian Active 02/15/20 06/19/2019 [facility] cyst 14 Health Irregular menstrual Active 02/15/20 06/19/2019 [facility] cycle 14 Health Facet arthropathy, Active 06/19/2019 [facility] lumbar Health DDD (degenerative Active 06/19/2019 [facility] disc disease), Healt h lumbar Chronic bilateral Active 06/19/2019 [facility] low back pain with H ealth bilateral sciatica 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 Follow up with your MD for further evaluation and treatment. methylPREDNISolone 4 Take by Oral Active [facility] mg tablets mouth 019 Health SEE-INSTRUCT IONS. follow package directions cyclobenzaprine 5 mg Take 1 Oral Active [facility] tablet tablet by 019 [facility] mouth at bedtime as needed for Muscle Spasms. gabapentin 300 mg Take 600 mg Oral Active [facility] capsule by mouth 3 Health (three) times daily. clonazePAM Take 1 mg by Oral Active [facility] (KLONOPIN) 1 mg mouth 3 Health tablet (three) times daily. progesterone 100 mg Take 200 mg Oral Active [facility] capsule by mouth Health daily. estradiol 1 mg Take 2 mg by Oral Active [facility] tablet mouth daily. Health Allergies, Adverse Reactions, Alerts No Known Medication Allergies Immunizations Immunization Date Given Site Status Last Updated Comments Doris rce Influenza Virus 10/04/2018 completed [facility] B Vaccine Quad .5 Heal th mL IM 6+ MO Td 2010 completed [facility] Results No Data Provided for This Section Pathology Reports No Data Provided for This Section Diagnostic Reports No Data Provided for This Section Consultation Notes No Data Provided for This Section Discharge Summaries No Data Provided for This Section History and Physicals No Data Provided for This Section Vital Signs No Data Provided for This Section Encounters Location Location Encounter Encounter Reason Attending ADM DC Stat us Source Details Type Number For Provider Date Date Visit [facility] Refill [id number] Desiree 06/14 [facility] Orthopaedic Lamp [facility]- LAUNCH CHECK OUT [facility] Procedures No Data Provided for This Section Assessment and Plan No Data Provided for This Section Plan of Care Plan of Care Date Source INFLUENZA VACCINE 07/07/2019 [facility] PAP SMEAR 09/08/2017 [facility] DTaP,Tdap,and Td Vaccines (1 - 05/26/2010 [facility] Heal th Tdap) VARICELLA VACCINES (1 of 2 - 13+ 1996 [facility] alth 2-dose series) PNEUMOCOCCAL 0-64 YEARS COMBINED 1989 [facility] alth SERIES (1 of 1 - PPSV23) Social History Social History Date Source Tobacco UseTypesPacks/DayYears UsedDate 04/27/2019 [facility] Former Smoker Cigarettes 0.3 5 10/04/2010 - 10/04/2016 Smokeless Tobacco: Former User Quit: 09/03/2018 Alcohol UseDrinks/Weekoz/WeekComments Yes rare Sex Assigned at BirthDate Recorded Not on file Job Start DateOccupationIndustry Not on file Not on file Not on file Travel HistoryTravel StartTravel End No recent travel history available. documented as of this encounter Family History No Data Provided for This Section Advance Directives No Data Provided for This Section Functional Status No Data Provided for This Section
--- OUTSIDE RECORDS SUMMARY | 2020-03-19 11:55 | XMS REPORT ---
:1985 Author Organization [facility] t Address [address] [place] [address] Care Team Providers Name Role Phone Asked, Pcp Primary Care Physician Unavailable Leslie Siddiqui Attending Clinician Akilah Webb MD Attending Clinician DR LUCÍA Attending Clinician Unavailable SONNY LAMB Attending Clinician Unavailable DR LUCÍA Admitting Clinician Unavailable Payers Payer Name Policy Type Policy Number Effective Date Expiration Date S anna CVCPCVCP xxxxxxxxx 2016 [facility] 00:00:00 [employer] [employer] HEALTHCARExxxx /07/2015 Georges DOWELL WILLARDS, [address] [place] [id number] Problems Condition Condition Condition Status Onset Resolution Last Treating Co mments Source Name Details Category Date Date Treatment Clinician Date Syncope Syncope Disease Active 2015-11 [place] and and 12-07 [facility] collapse collapse 00:00: st 00 Allergies, Adverse Reactions, Alerts Allergy Allergy Status Severity Reaction(s) Onset Inactive Treating Comm ents Source Name Type Date Date Clinician Methocar Propensi Active [place] b[place] ty to 05-01 [facility] adverse 00:00: st reaction 00 s to drug Nabumeto Propensi Active Other (See [place], [place] ty to Comments) - night [facility] adverse 00:00: sweats, st reaction 00 tremors s to drug Tramadol Propensi Active 2015-11 [place] ty to 0-14 [facility] adverse 00:00: st reaction 00 s to drug Social History Social Habit Start Date Stop Date Quantity Comments Source Sex Assigned At [place] M ethodist Alcohol intake 2019-05-01 2019-05-01 Current [facility] thodist 00:00:00 00:00:00 non-drinker of alcohol (finding) Smoking Status Start Date Stop Date Source Current some day smoker 2019-05-01 00:00:00 [place] Medications Ordered Filled Start Stop Current Ordering Indication Dosage Frequency Signature Comments Components Source Medication Medication Date Date Medication? Clinician (SIG) Name Name ibuprofen Yes 800mg Q6H Take 800 Filomena ston (ADVIL,MOTR 6-26 mg by [facility] IN) 800 MG 16:48: mouth st tablet 16 every 6 (six) hours as needed for mild pain. ranitidine 2018- Yes 150mg Q.5D Take 150 [place] (ZANTAC) 6-26 mg by [facility] 150 MG 16:47: mouth 2 st tablet 58 (two) times a day. omeprazole Yes 20mg QD Take 20 mg [place] (PriLOSEC) 6-26 by mouth Metho di 20 MG 16:47: daily. st capsule 57 FLUoxetine Yes 10mg QD Take 10 mg [place] (PROzac) 10 6-26 by mouth Meth berenice MG capsule 16:47: daily. st 19 estradiol 2019- Yes 2mg QD Take 2 mg Filomena ston (ESTRACE) 1 6-26 by mouth Meth berenice MG tablet 16:46: daily. st 45 progesteron 2019-0 Yes 200mg QD Take 200 [place] e 6-26 mg by [facility] (PROMETRIUM 16:46: mouth st ) 200 MG 45 daily. capsule gabapentin 2018-0 Yes 600mg Q.[id number] Take 600 [place] (NEURONTIN) 6-26 [id number] mg by M ethodi 300 MG 16:46: 3D mouth 3 st capsule 45 (three) times a day. cyclobenzap 2019- 2019- No 10mg Q.5D Take 1 Filomena ston rine 6-26 07-27 tablet (10 [facility] (FLEXERIL) 00:00: 04:59 mg total) s t 10 mg 00 :00 by mouth 2 tablet (two) times a day as needed for muscle spasms for up to 30 days. predniSONE 2018- No 20mg QD Take 2 Amberly ton (DELTASONE) 05-01 tablets Meth berenice 10 mg 00:00: 04:59 ([address] tablet 00 :00 total) by mouth daily for 5 days. Vital Signs Vital Name Observation Time Observation Value Comments Source Systolic blood 2019-05-01 19:30:46 132 mm[Hg] Rigo n [facility] pressure Diastolic blood 2019-05-01 19:30:46 77 mm[Hg] [place] [facility] pressure Heart rate 2019-05-01 19:30:46 76 /min Eron Du Body temperature 2019-05-01 19:30:46 37.06 Dora Amberly Du Respiratory rate 2019-05-01 19:30:46 20 /min Amberly Du Oxygen saturation in 2019-05-01 19:30:46 94 /min Eron Du Arterial blood by Pulse oximetry Body height 2019-05-01 16:44:00 180.3 cm Eron Du Body weight 2019-05-01 16:44:00 119.296 kg Eron Du BMI 2019-05-01 16:44:00 36.68 kg/m2 Eron Du Procedures Procedure Date / Time Performed Performing Clinician Sour e CT LUMBAR SPINE WO 2019-05-01 18:38:[address] HEAD WO CONTRAST 2019-05-01 18:36:27 Uche Webb URINALYSIS 2019-05-01 17:41:00 Uche Webb HCG QUALITATIVE, URINE 2019-05-01 17:41:00 TraceyUche lee SCREEN HC COMPLETE BLD COUNT 2019-05-01 17:30:00 Uche Webb W/AUTO DIFF COMPREHENSIVE METABOLIC 2019-05-01 17:30:00 Uche Webb PANEL TROPONIN, I-STAT 2019-05-01 17:30:00 Uche Webb CREATINE KINASE, TOTAL 2019-05-01 17:30:00 Uche Webb (CPK) B NATRIURETIC PEP, I-STAT 2019-05-01 17:30:00 Uche Webb ESTIMATED GFR 2019-05-01 17:30:00 Uche Webb ECG 12-LEAD 2019-05-01 17:23:50 TraceyUche jordan URINE CULTURE 2019-05-01 17:17:00 Uche Webb GRAM STAIN 2019-05-01 17:17:00 Uche Webb Plan of Care Planned Activity Planned Date Details Comments Source Future Scheduled Test [code = ] Future Scheduled Test [code = ] Encounters Start End Encounter Admission Attending Care Care Encounter Source Date/Time Date/Time Type Type Clinicians Facility Department ID 2019-06-14 2019-06-14 Refill [place], [facility] [id number] 00:00:00 00:00:00 Desiree Nelson [facility] [id number] [facility] [id number] [place] [id number] 2019-06-14 2019-06-14 Refill [place], [facility] [id number] [facility] - 00:00:00 00:00:00 Desiree Nelson [facility] [id number] [facility] [id number] [place] [id number] 2019-05-01 2019-05-01 Emergency [facility] [id number] [place] [address] 00:00:00 00:00:00 UCHE Tran [facility] 2019-04-15 2019-04-15 Emergency E [facility] [id number] [facility] 10:36:00 10:36:00 2019-02-08 2019-02-08 Emergency E [facility] [id number] [facility]BL 13:12:00 13:12:00 2018-03-28 2018-03-28 Outpatient Eduardo CASTREJON Eduardo [facility] [id number] 065 [place] 08:23:00 10:35:00 [facility] Results Test Description Test Time Test Comments Results Result Comments Source Urine culture 2019-05-03 00:27:06 Test Item Value Reference Range Interpretation Comme nts Urine culture isolate Mixed sherley 10-5 Sp ecimen InformationSpecimen (test code = 62660-4) col/cc Source : UrineSpecimen Site: Random void [place] MethodistGram [id number] 00:27:06Gram stain resultNo WBC'sFew Gram positive rods Comment: Specimen InformationSpecimen Source: UrineSpecimen Site: Random void [facility] MethodistECG 12 [id number] 23:35:13 Test Item Value Reference Range Interpretation Comments Ventricular rate (test 93 code = 253) Atrial rate (test code 93 = 255) FL interval (test code 148 = 266) QRSD interval (test 66 code = 260) QT interval (test code 342 = 264) QTC interval (test code 425 = 265) P axis 1 (test code = 41 267) QRS axis 1 (test code = 33 268) T wave axis (test code 38 = 270) EKG impression (test Normal sinus code = 273) rhythm-Normal ECG-In automated comparison with ECG of 19-JUN-2017 13:34,-No significant change was found- [place] [facility] [id number] 18:50:11Hm Interface, Radiology Results Incoming - 05/01/2019 1:53 PM CDTEXAMINATION: CT HEAD WO CONTRASTCLI NICAL HISTORY: syncopeCOMPARISON: CT brain dated June 19, 2017TECHNIQUE: Noncontrast enhanced images of the brain were obtained from the skull base to the vertex. Both soft tissue and bone reconstruction algorithms were performed. CT imaging was performed with iterative reconstruction technique and/or automated exposure control to reduce radiation dose.FINDINGS:The brain parenchyma has no acute lesion. The kaminski-white matter differentiation is preserved. No evidence of acute intra or extra-axial hemorrhage, mass, mass effect or acute territorial infarction. There is no acute hydrocephalus. Basal cisterns are patent. Orbits are intact. There is a lipoma noted in the right parietal scalp again identified.No acute soft tissue hematoma or laceration.Paranasal sinuses shows no acute air-fluid levels. Mastoid air cells are clear. No skull fractures or aggressive bony lesions. IMPRESSION:No acute i ntracranial abnormality identified.[id number] MethodistCT Lumbar Spine Wo [id number] 18:44:39Hm Interface, Radiology Results 05/01/2019 1:47 PM CDTEXAMINATION: CT LUMBAR SPINE WO CONTRASTCOMPARISON: NoneCLINICAL HISTORY: L S-spine fx traumaticCOMMENTS: Axial CT scan slices of the lumbar spine were obtained. Sagittal and coronal reconstructions were obtained.CT imaging was performed with iterative reconstruction technique and/or automated exposure control to reduce radiation dose.FINDINGS: L5 is partially sacralized with a slightly small disc between L5 and S1.L4-5 shows mild facet disease. There is mild ligament flavum thickening. There is a very shallow but broad-based disc protrusion greater towards left side.L3-4 shows mild facet disease ligament flavum thickening anddisc bulge. Bilateral laminectomy change.L2-3 shows mild facet disease ligament flavum thickening. There is minimal disc bulge.L1-2 shows minimal facet disease.No acute fracture or subluxation.IMPRESSION: No acute fracture of the lumbar spine.[id number] [place] MethodistCreatine kinase, total (CPK)2019-05-01 18:15:46 Test Item Value Reference Range Interpretation Comments Creatine kinase (test code = 2157-6) 70 U/L 30-190 [place] MethodistB natriuretic pep, [id number] 18:15:46 Test Item Value Reference Range Interpretation Comments BNP, I-Stat (test code = 68131-1) <20 0-100 [place] MethodistTroponin, [id number] 18:15:46 Test Item Value Reference Range Interpretation Comments Troponin, I-Stat 0.06 ng/mL 0-0.08 0.09 - 1.49 ng/ml (test code = 2359) May indic ate increased risk of acute coronary syndro me. >=1.5 ng/ml Consistent with acute myocardial infar ction. The diagnostic valu e of a single normal o r non-diagnostic result is questionable. Serial samples at 2-6 hour intervalsare re quired to rule out acute myocardial injury. [place] MethodistComprehensive metabolic [id number] 18:08:56 Test Item Value Reference Range Interpretation Comments Sodium (test code = 2951-2) 142 128- 145 mEq/L Potassium (test code = 2823-3) 4.6 3.6- 5.1 mEq/L CO2 (test code = 2027-9) 26 18- 33 mEq/L Chloride (test code = 2075-0) 104 98- 108 mEq/L Glucose (test code = 2345-7) 95 mg/dL 73-118 Calcium (test code = 03961-7) 9.5 mg/dL 8-10.3 BUN (test code = 3094-0) 16 mg/dL 7-22 Creatinine (test code = 2160-0) 0.5 mg/dL 0.5-0.9 Alkaline phosphatase (test code = 91 U/L 42-141 6768-6) ALT (test code = 1742-6) 35 U/L 10-47 AST (test code = 1920-8) 21 U/L 11-38 Total bilirubin (test code = 0.5 mg/dL 0.2-1.6 1974-2) Albumin (test code = 1751-7) 3.9 g/dL 3.3-5.5 Protein (test code = 2885-2) 8.0 g/dL 6.4-8.1 Anion gap (test code = 66639-6) 12@ANIO 7- 15 mEq/L A/G ratio (test code = 1759-0) 1.0 0.7-3.8 [facility] with platelet and [id number] 18:08:56 Test Item Value Reference Range Interpretation Comments WBC (test code = 87634-6) 7.37 4.50- 11.00 k/uL RBC (test code = 26740-0) 4.95 m/uL 4.2-5.5 HGB (test code = 718-7) 11.5 g/dL 12-16 L HCT (test code = 4544-3) 36.4 % 37-47 L MCV (test code = 787-2) 73.5 fL 82-100 L MCH (test code = 785-6) 23.2 pg 27-34 L MCHC (test code = 786-4) 31.6 g/dL 31-37 RDW - SD (test code = 68774-8) 42.0 fL 37-55 MPV (test code = 61759-1) 10.7 fL 8.8-13.2 Platelet count (test code = 319 150- 400 k/uL 12147-4) Neutrophils (test code = 72270-2) 65.3 % 39-69 Lymphocytes (test code = 02622-8) 25.8 % 25-45 Monocytes (test code = 49914-8) 7.1 % 0-10 Eosinophils (test code = 02483-5) 1.5 % 0-5 Basophils (test code = 42723-4) 0.3 % 0-1 Lab Interpretation (test code = Abnormal 02925-2) Eron DuhCG qualitative, urine [id number] 18:08:56 Test Item Value Reference Range Interpretation Comments hCG qualitative, Negative Sensitivity of HCG test: urine (test code = 25 mIU/mL Negative test 2106-3) results in shannon ents suspected to be should be retes mady with a sample obtained 48-72 hours later, or by performing a qu antitative assay. Eron [id number] 18:08:56 Test Item Value Reference Range Interpretation Comments Glucose, UA (test code = Negative Negative 85863-9) Bilirubin, UA (test code = Negative Negative 5770-3) Ketones, UA (test code = Negative Negative 2514-8) Specific gravity, UA (test code 1.025 1.001-1.035 = 5811-5) Blood, UA (test code = 5794-3) Negative Negative pH, UA (test code = 5803-2) 7.0 5.0-8.5 Protein, UA (test code = Negative Negative 30895-0) Urobilinogen, UA (test code = <2.0 <2.0 02611-1) Nitrite, UA (test code = Negative Negative 5802-4) Leukocyte esterase, UA (test Negative Negative code = 5799-2) Color, UA (test code = 5778-6) Yellow Appearance, UA (test code = Slightly Hazy 5767-9) Eron MethodistEstimated [id number] 18:08:56 Test Item Value Reference Range Interpretation Comments Estimated GFR (test >=90 mL/min/1.73 m2 Caterg ory Units code = 5488) InterpretationG 1 >=90 Normal or highG2 60-89 Mildly oumlvadchI3c 45-59 Mildly to mode rately bxwhccbwwB5l 30-44 Moderately to severely decreasedG4 15-29 Severely decre asedG5 <15 Kidn ey failureThe eGFR was calculated justice manzo the Chronic Kidney Disease Epidemiology Co llaboration (CKD-EPI) equat ion. Interpretation is based on recommendations of the National Kidney Foundation-Kidn ey Disease Outcomes Qualit y Initiative (NKF-KDOQI) pub lished in 2014. [facility] W/PLT COUNT & AUTO [id number] 17:45:00 Test Item Value Reference Range Interpretation Comments WHITE BLOOD CELL COUNT (BEAKER) 6.2 K/ L 4.0-10.0 (test code = 775) RED BLOOD CELL COUNT (BEAKER) 5.00 M/ L 4.00-5.00 (test code = 761) HEMOGLOBIN (BEAKER) (test code = 12.0 GM/DL 12.0-15.0 410) HEMATOCRIT (BEAKER) (test code = 37.6 % 36.0-45.0 411) MEAN CORPUSCULAR VOLUME (BEAKER) 75.1 fL 82.0-99.0 L (test code = 753) MEAN CORPUSCULAR HEMOGLOBIN 24.0 pg 27.0-33.0 L (BEAKER) (test code = 751) MEAN CORPUSCULAR HEMOGLOBIN CONC 32.0 GM/DL 32.0-36.0 (BEAKER) (test code = 752) RED CELL DISTRIBUTION WIDTH 15.1 % 10.3-14.2 H (BEAKER) (test code = 412) PLATELET COUNT (BEAKER) (test 352 K/CU MM 150-430 code = 756) MEAN PLATELET VOLUME (BEAKER) 7.7 fL 6.5-10.5 (test code = 754) NUCLEATED RED BLOOD CELLS 0 /100 WBC 0-0 (BEAKER) (test code = 413) NEUTROPHILS RELATIVE PERCENT 68 % (BEAKER) (test code = 429) LYMPHOCYTES RELATIVE PERCENT 25 % (BEAKER) (test code = 430) MONOCYTES RELATIVE PERCENT 5 % (BEAKER) (test code = 431) EOSINOPHILS RELATIVE PERCENT 1 % (BEAKER) (test code = 432) BASOPHILS RELATIVE PERCENT 1 % (BEAKER) (test code = 437) NEUTROPHILS ABSOLUTE COUNT 4.20 K/ L 1.80-8.00 (BEAKER) (test code = 670) LYMPHOCYTES ABSOLUTE COUNT 1.60 K/ L 1.48-4.50 (BEAKER) (test code = 414) MONOCYTES ABSOLUTE COUNT (BEAKER) 0.30 K/ L 0.00-1.30 (test code = 415) EOSINOPHILS ABSOLUTE COUNT 0.10 K/ L 0.00-0.50 (BEAKER) (test code = 416) BASOPHILS ABSOLUTE COUNT (BEAKER) 0.00 K/ L 0.00-0.20 (test code = 417) (MANUAL DIFFERENTIAL)2017-06-17 17:45:00 Test Item Value Reference Range Interpretation Comments TOTAL COUNTED (BEAKER) (test code = 1351) WBC MORPHOLOGY (BEAKER) (test code = Normal 487) PLT MORPHOLOGY (BEAKER) (test code = Normal 486) ELLIPTOCYTES (BEAKER) (test code = 1+ few 962) HYPOCHROMIA (BEAKER) (test code = 963) 1+ few COMPREHENSIVE METABOLIC [id number] 16:26:00 Test Item Value Reference Range Interpretation Comments TOTAL PROTEIN 7.9 gm/dL 6.0-8.5 (BEAKER) (test code = 770) ALBUMIN (BEAKER) 4.0 g/dL 3.5-5.0 (test code = 1145) ALKALINE PHOSPHATASE 76 U/L 30-115 (BEAKER) (test code = 346) BILIRUBIN TOTAL 0.3 mg/dL 0.1-1.2 (BEAKER) (test code = 377) SODIUM (BEAKER) 136 meq/L 135-148 (test code = 381) POTASSIUM (BEAKER) 4.2 meq/L 3.6-5.5 (test code = 379) CHLORIDE (BEAKER) 105 meq/L 98-106 (test code = 382) CO2 (BEAKER) (test 17 meq/L 20-29 L code = 355) BLOOD UREA NITROGEN 14 mg/dL 10-26 (BEAKER) (test code = 354) CREATININE (BEAKER) 0.80 mg/dL 0.50-1.20 (test code = 358) GLUCOSE RANDOM 102 mg/dL 70-110 (BEAKER) (test code = 652) CALCIUM (BEAKER) 9.6 mg/dL 8.5-10.5 (test code = 697) AST (SGOT) (BEAKER) 21 U/L 5-40 (test code = 353) ALT (SGPT) (BEAKER) 16 U/L 5-50 (test code = 347) EGFR (BEAKER) (test mL/min/1.73 INSUFFIC IENT code = 1092) sq m CLINICAL DATA T O CALCULATE ESTIM ATED GFR. [id number] 16:26:00 Test Item Value Reference Range Interpretation Comments MAGNESIUM (BEAKER) (test code = 2.4 mg/dL 1.5-3.0 627) [id number] 16:26:00 Test Item Value Reference Range Interpretation Comments PHOSPHORUS (BEAKER) (test code = 3.6 mg/dL 2.5-4.5 604) RAPID DRUG SCREEN, [id number] 16:12:00 Test Item Value Reference Range Interpretation Comments METHAMPHETAMINE SCREEN (BEAKER) Negative Negative (test code = 1435) BARBITURATE URINE (BEAKER) (test Negative Negative code = 725) BENZODIAZEPINE SCREEN URINE (BEAKER) Positive Negative A (test code = 726) COCAINE (METAB.) SCREEN (BEAKER) Negative Negative (test code = 1164) OPIATE SCREEN URINE (BEAKER) (test Positive Negative A code = 734) CANNABINOID SCREEN URINE (BEAKER) Negative Negative (test code = 727) AMPHETAMINE SCREEN URINE (BEAKER) Negative Negative (test code = 399) PHENCYCLIDINE SCREEN URINE (BEAKER) Negative Negative (test code = 608) DRUG CUTOFF CONC.Cocaine 300 ng/mL Cannabinoid 50 ng/mLBenzodiazepine 200 ng/mLBarbiturate 200 ng/mLPhencyclidine 25 ng/mLOpiate 300 ng/mLMethadone 300 ng/mLAmphetamine/ 1000 ng/mL MethamphetamineThis assay provides an unconfirmed qualitative test result for the clinical management of patients in emergency situations. Chain of custody not maintained. Some eaaa-nsr-ojhkvkr medications, as well as adulterants, may cause inaccurate results. Clinical correlation should be applied. A more comprehensivedrug screen or confirmation of a detected drug may be performed upon request.URINALYSIS W/ MICROSCOPIC 2017-06-17 16:03:00 Test Item Value Reference Range Interpretation Comments COLOR (BEAKER) (test code = 470) Yellow CLARITY (BEAKER) (test code = 469) Clear SPECIFIC GRAVITY UA (BEAKER) (test <= 1.001-1.035 code = 468) PH UA (BEAKER) (test code = 467) 6.0 5.0-8.0 PROTEIN UA (BEAKER) (test code = Negative Negative 464) GLUCOSE UA (BEAKER) (test code = Negative Negative 365) KETONES UA (BEAKER) (test code = Negative Negative 371) BILIRUBIN UA (BEAKER) (test code = Negative Negative 462) BLOOD UA (BEAKER) (test code = Negative Negative 461) NITRITE UA (BEAKER) (test code = Negative Negative 465) LEUKOCYTE ESTERASE UA (BEAKER) Negative Negative (test code = 466) UROBILINOGEN UA (BEAKER) (test 0.2 mg/dL 0.2-1.0 code = 463) BACTERIA (BEAKER) (test code = Few 517) RBC UA-MANUAL (BEAKER) (test code <5 /HPF = 1659) WBC UA-MANUAL (BEAKER) (test code <5 /HPF = 1661) SQUAMOUS EPITHELIAL MANUAL 10-20 /HPF (BEAKER) (test code = 1663) SOURCE(BEAKER) (test code = 2776)
--- NOTE | 2020-03-19 12:22 | RAD REPORT ---
EXAM DESCRIPTION: RAD - Elbow Left 3 View - 03/19/2020 12:03 pm CLINICAL HISTORY: PAIN COMPARISON: No comparisons FINDINGS: No fracture or dislocation seen.
--- NOTE | 2020-03-19 12:46 | ER ---
Nurse's Notes [facility] Name: Emerald Alejandro Age: 34 yrs Sex: Female : 1985 Arrival Date: 03/19/2020 Time: 11:17 Bed 5 Private MD: Diagnosis: Contusion of left elbow Presentation: 03/19 11:35 Chief complaint: Patient states: Getting up from tub when patient slipped, hitting L ss elbow on edge of tub. Coronavirus screen: Proceed with normal triage. Ebola Screen: Patient denies exposure to infectious person. Patient denies travel to an Ebola-affected area in the 21 days before illness onset. Initial Sepsis Screen: Does the patient meet any 2 criteria? No. Patient's initial sepsis screen is negative. Does the patient have a suspected source of infection? No. Patient's initial sepsis screen is negative. Risk Assessment: Do you want to hurt yourself or someone else? Patient reports no desire to harm self or others. Onset of symptoms was March 19, 2020. 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 - Social history:: Smoking status: Patient/guardian denies using tobacco, but has a distant history of tobacco abuse. Screenin:24 Abuse screen: Denies threats or abuse. Denies injuries from another. Nutritional jl7 screening: No deficits noted. Tuberculosis screening: No symptoms or risk factors identified. Fall Risk Fall in past 12 months (25 points). Total Franco Fall Scale indicates No Risk (0-24 pts). Assessment: 12:24 General: Appears in no apparent distress. uncomfortable, Behavior is calm, cooperative, jl7 appropriate for age. Pain: Complains of pain in left elbow Pain radiates to left hand Pain currently is 0 out of 10 on a pain scale. at worst was 7 out of 10 on a pain scale. Quality of pain is described as pressure, Is episodic. Neuro: Level of Consciousness is awake, alert, obeys commands, Oriented to person, place, time, situation. Cardiovascular: Patient's skin is warm and dry. Pulses are palpable in right radial artery and left radial artery. Respiratory: Airway is patent Respiratory effort is even, unlabored. Derm: Skin is pink, warm \T\ dry. Musculoskeletal: Range of motion: limited in left elbow Swelling present in palmar aspect of left forearm. Vital Signs: 11:35 BP 134 / 81; Pulse 87; Resp 16; Temp 97.1(TE); Pulse Ox 98% on R/A; Weight 136.53 kg; ss Height 5 ft. 11 in. (180.34 cm); Pain 7/10; 12:24 BP 120 / 86; Pulse 74; Resp 16; Pulse Ox 96% ; Pain 0/10; jl7 11:35 Body Mass Index 41.98 (136.53 kg, 180.34 cm) ED Course: 11:17 Patient arrived in ED. mr 11:36 Triage completed. 11:36 Arm band placed on right wrist. 12:04 XRAY Elbow LEFT 3 view In Process Unspecified. EDNY 12:15 Asa Garcia PA is PHCP. jr8 12:15 Eugene Gamble MD is Attending Physician. 8 12:15 Crista Cordoba RN is Primary Nurse. jl7 12:24 Patient has correct armband on for positive identification. Bed in low position. Call jl7 light in reach. Side rails up X 1. Pulse ox on. NIBP on. 12:45 Edouard Nagy MD is Referral Physician. jr8 13:06 No provider procedures requiring assistance completed. Patient did not have IV access ss during this emergency room visit. Administered Medications: No medications were administered Outcome: 12:45 Discharge ordered by . jr8 13:06 Discharged to home ambulatory. 13:06 Condition: good 13:06 Discharge instructions given to patient, family, Instructed on discharge instructions, follow up and referral plans. Demonstrated understanding of instructions, follow-up care. 13:07 Patient left the ED. Signatures: Dispatcher [employer] [facility] Jimmy Lorie NunezKenyetta, RN RN Asa Garcia PA PA jr8 Crista Cordoba RN RN jl7
--- NOTE | 2020-03-19 12:46 | EDPHYS ---
Physician Documentation [facility] Name: Emerald Alejandro Age: 34 yrs Sex: Female : 1985 Arrival Date: 03/19/2020 Time: 11:17 Bed 5 Private MD: ROLDAN Physician Eugene Gamble HPI: 03/19 12:42 This 34 yrs old Female presents to ER via Ambulatory with complaints of Elbow jr8 Injury. 12:42 The patient or guardian complains of decreased range of motion, pain. The complaints jr8 affect the left elbow. Context: The problem was sustained at home, resulted from a fall. Onset: The symptoms/episode began/occurred acutely, today. Treatment prior to arrival includes: no previous treatment. Modifying factors: The symptoms are alleviated by nothing. the symptoms are aggravated by movement, bending arm. Details of fall: The patient fell from an upright position, while standing. 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 - Social history:: Smoking status: Patient/guardian denies using tobacco, but has a distant history of tobacco abuse. ROS: 12:42 Eyes: Negative for injury, pain, redness, and discharge, ENT: Negative for injury, jr8 pain, and discharge, Neck: Negative for injury, pain, and swelling, Cardiovascular: Negative for chest pain, palpitations, and edema, Respiratory: Negative for shortness of breath, cough, wheezing, and pleuritic chest pain, Abdomen/GI: Negative for abdominal pain, nausea, vomiting, diarrhea, and constipation, Back: Negative for injury and pain, Skin: Negative for injury, rash, and discoloration, Neuro: Negative for headache, weakness, numbness, tingling, and seizure. 12:42 MS/extremity: Positive for decreased range of motion, pain, tenderness, of the left elbow. Exam: 12:42 Constitutional: This is a well developed, well nourished patient who is awake, alert, jr8 and in no acute distress. Head/Face: Normocephalic, atraumatic. Neck: Trachea midline, no thyromegaly or masses palpated, and no cervical lymphadenopathy. Supple, full range of motion without nuchal rigidity, or vertebral point tenderness. No Meningismus. Cardiovascular: Regular rate and rhythm with a normal S1 and S2. No gallops, murmurs, or rubs. Normal PMI, no JVD. No pulse deficits. Respiratory: Lungs have equal breath sounds bilaterally, clear to auscultation and percussion. No rales, rhonchi or wheezes noted. No increased work of breathing, no retractions or nasal flaring. Skin: Warm, dry with normal turgor. Normal color with no rashes, no lesions, and no evidence of cellulitis. Neuro: Awake and alert, GCS 15, oriented to person, place, time, and situation. Cranial nerves II-XII grossly intact. Motor strength 5/5 in all extremities. Sensory grossly intact. Cerebellar exam normal. Normal gait. 12:42 Musculoskeletal/extremity: Extremities: grossly normal except: noted in the left elbow: decreased ROM, pain, tenderness, to olecranon process. No swelling, bruising, or other trauma noted , ROM: intact in all extremities, limited active range of motion due to pain, limited passive range of motion due to pain, Circulation is intact in all extremities. Sensation intact. Vital Signs: 11:35 BP 134 / 81; Pulse 87; Resp 16; Temp 97.1(TE); Pulse Ox 98% on R/A; Weight 136.53 kg; ss Height 5 ft. 11 in. (180.34 cm); Pain 7/10; 12:24 BP 120 / 86; Pulse 74; Resp 16; Pulse Ox 96% ; Pain 0/10; jl7 11:35 Body Mass Index 41.98 (136.53 kg, 180.34 cm) Procedures: 12:44 Splinting: Splint applied to left elbow using sling, applied by nurse. Examined by husam cornell post splint application: neurovascular intact, 2+ distal pulses palpable, brisk capillary refill noted. MDM: 12:15 Patient medically screened. jr8 12:44 Data reviewed: vital signs, nurses notes, radiologic studies, plain films. Data jr8 interpreted: Pulse oximetry: on room air is 96 %. Interpretation: normal. Counseling: I had a detailed discussion with the patient and/or guardian regarding: the historical points, exam findings, and any diagnostic results supporting the discharge/admit diagnosis, radiology results, the need for outpatient follow up, a orthopedic surgeon, to return to the emergency department if symptoms worsen or persist or if there are any questions or concerns that arise at home. 03/19 11:37 Order name: XRAY Elbow LEFT 3 view; Complete Time: 12:37 ss Administered Medications: No medications were administered Disposition: 03/20 05:29 Co-signature as Attending Physician, Eugene Gamble MD I agree with the assessment and madiha plan of care. Disposition: 03/19/20 12:45 Discharged to Home. Impression: Contusion of left elbow. - Condition is Stable. - Discharge Instructions: Elbow Contusion. - Medication Reconciliation Form, Thank You Letter, Antibiotic Education, Prescription Opioid Use form. - Follow up: Edouard Nagy MD; When: 10 - 14 days; Reason: If symptoms return, Recheck today's complaints, Re-evaluation by your physician. - Problem is new. - Symptoms have improved. Signatures: Dispatcher [employer] EDMS Eugene Gamble MD MD cha Smirch, Shelby, RN RN ss Asa Garcia PA PA jr8 Corrections: (The following items were deleted from the chart) 03/19 13:07 12:45 03/19/2020 12:45 Discharged to Home. Impression: Contusion of left elbow. ss Condition is Stable. Forms are Medication Reconciliation Form, Thank You Letter, Antibiotic Education, Prescription Opioid Use. Follow up: Edouard Nagy; When: 10 - 14 days; Reason: If symptoms return, Recheck today's complaints, Re-evaluation by your physician. Problem is new. Symptoms have improved. jr8
[2020-03-19 13:37] VITALS: BP 120/86; O2SAT 96
[2020-03-19 13:39] VITALS: TEMP 97.1
== END 2020-03-19 13:07 | disposition home or self-care (01) ==
LOC: ER 11:13
DX: S50.02XA Contusion of left elbow, initial encounter (principal); W19.XXXA Unspecified fall, initial encounter; Y93.9 Activity, unspecified; Y92.009 Unspecified place in unspecified non-institutional (private) residence as the place of occurrence of the external cause; Z88.5 Allergy status to narcotic agent
CPT/HCPCS: 99283

== ENCOUNTER 2020-06-29 22:02 | Emergency (ER) | payer BC, SELFPAY ==
--- OUTSIDE RECORDS SUMMARY | 2020-06-29 22:04 | XMS REPORT | Continuity of Care Document ---
:1985 Author Organization [facility] t Address [address] [place] [address] Care Team Providers Name Role Phone Marco GARCES, [facility] Primary Care Physician Unavailable Leslie Siddiqui Attending Clinician KHADIJAH Attending Clinician Unavailable DR LUCÍA Attending Clinician Unavailable SONNY LAMB Attending Clinician Unavailable DR LUCÍA Admitting Clinician Unavailable Problems Condition Condition Condition Status Onset Resolution Last Treating Co mments Source Name Details Category Date Date Treatment Clinician Date Syncope Syncope Disease Active 2015-11 [place] and and 12-07 [facility] collapse collapse 00:00: st 00 Allergies, Adverse Reactions, Alerts Allergy Allergy Status Severity Reaction(s) Onset Inactive Treating Comm ents Source Name Type Date Date Clinician Methocar Propensi Active [place] to 05-01 [facility] adverse 00:00: st reaction 00 s to drug Nabumeto Propensi Active Other (See [place], [place] ne ty to Comments) 8- night [facility] adverse 00:00: sweats, st reaction 00 tremors s to drug Tramadol Propensi Active 2015-11 [place] to 0 [facility] adverse 00:00: st reaction 00 s to drug Social History Social Habit Start Date Stop Date Quantity Comments Source Sex Assigned At [facility] ethodist Alcohol intake 2019-05-01 2019-05-01 Current [place] [facility] 00:00:00 00:00:00 non-drinker of alcohol (finding) Smoking Status Start Date Stop Date Source Current some day smoker 2019-05-01 00:00:00 Amberly Du Never smoker [facility] Medications Ordered Filled Start Stop Current Ordering Indication Dosage Frequency Signature Comments Components Source Medication Medication Date Date Medication? Clinician (SIG) Name Name ibuprofen Yes 800mg Q6H Take 800 [address] (ADVIL,MOTR 6-26 mg by [facility] IN) 800 MG 11:48: mouth st tablet 16 every 6 (six) hours as needed for mild pain. ranitidine Yes 150mg Q.5D Take 150 [place] (ZANTAC) 6-26 mg by [facility] 150 MG 11:47: mouth 2 st tablet 58 (two) times a day. omeprazole Yes 20mg QD Take 20 mg [place] (PriLOSEC) 6-26 by mouth Metho di 20 MG 11:47: daily. st capsule 57 FLUoxetine Yes 10mg QD Take 10 mg [place] (PROzac) 10 6-26 by mouth Meth berenice MG capsule 11:47: daily. st 19 estradiol Yes 2mg QD Take 2 mg Fil[place]a ston (ESTRACE) 1 6-26 by mouth Meth berenice MG tablet 11:46: daily. st 45 progesteron Yes 200mg QD Take 200 [place] e 6-26 mg by [facility] (PROMETRIUM 11:46: mouth st ) 200 MG 45 daily. capsule gabapentin Yes 600mg [id number] Take 600 [place] (NEURONTIN) 6-26 [id number] mg by M ethodi 300 MG 11:46: 3D mouth 3 st capsule 45 (three) times a day. HYDROcodone Yes 1{tbl} Take [address] -acetaminop 8-12 tablet by Donald march (NORCO 15:09: mouth Medica l 5-325) 21 every 6 Center 5-325 mg (six) per tablet hours as needed for Pain. ALPRAZolam Yes .25mg Take 0.[address] (XANAX) 8-12 mg by Erica - 0.25 MG 15:09: mouth 3 Medical tablet 05 (three) Center times daily as needed for Anxiety. traMADol 2017- Yes 50mg Take [address] (ULTRAM) 50 8-12 by mouth Luke s - mg tablet 15:09: every 6 Medic al 05 (six) Center hours as needed for Pain. cyclobenzap 2017-0 Yes 10mg Take [address] rine 8-12 by mouth 3 [facility] - (FLEXERIL) 15:09: (three) Medi aneudy 10 MG 05 times Center tablet daily as needed for Muscle spasms. Procedures This patient has no known procedures. Plan of Care Planned Activity Planned Date Details Comments Source Future Scheduled 2020-08-06 INFLUENZA VACCINE [place] [facility] 00:00:00 [code = INFLUENZA VACCINE] Future Scheduled 2004 Screening for [facility] thodist Test 00:00:00 malignant neoplasm of cervix (procedure) [code = 326404951] Encounters Start End Encounter Admission Attending Care Care Encounter Source Date/Time Date/Time Type Type Clinicians Facility Department ID 2019-06-14 2019-06-14 [facility] [id number] 00:00:00 00:00:00 Desiree [facility] [id number] [facility] [id number] [facility] [id number] 2019-05-01 2019-05-01 Emergency [facility] [id number] [place] 00:00:00 00:00:[address] [facility] [address] 2019-04-15 2019-04-15 Emergency E [facility] [id number] [facility] 10:36:00 10:36:00 2019-02-08 2019-02-08 Emergency E [facility] [id number] 13:12:00 13:12:00 2018-03-28 2018-03-28 Outpatient C [facility]UC[facility]A [facility] [id number] [facility] 08:23:00 10:35:00 [facility] Results Test Description Test Time Test Comments Results Result Comments Source CBC W/PLT COUNT & AUTO DIFFERENTIAL 2017-06-17 17:45:00 Test Item Value Reference Range Interpretation Comme nts WHITE BLOOD CELL COUNT (BEAKER) (test code = 775) 6.2 K/ L 4.0- 10.0 RED BLOOD CELL COUNT (BEAKER) (test code = 761) 5.00 M/ L 4.00-5 .00 HEMOGLOBIN (BEAKER) (test code = 410) 12.0 GM/DL 12.0-15.0 HEMATOCRIT (BEAKER) (test code = 411) 37.6 % 36.0-45.0 MEAN CORPUSCULAR VOLUME (BEAKER) (test code = 753) 75.1 fL 82. 0-99.0 L MEAN CORPUSCULAR HEMOGLOBIN (BEAKER) (test code = 751) 24.0 pg 27.0-33.0 L MEAN CORPUSCULAR HEMOGLOBIN CONC (BEAKER) (test code = 752) 32.0 GM/DL 32.0-36.0 RED CELL DISTRIBUTION WIDTH (BEAKER) (test code = 412) 15.1 % 10.3-14.2 H PLATELET COUNT (BEAKER) (test code = 756) 352 K/CU MM 150-430 MEAN PLATELET VOLUME (BEAKER) (test code = 754) 7.7 fL 6.5-10 .5 NUCLEATED RED BLOOD CELLS (BEAKER) (test code = 413) 0 /100 WBC 0 -0 NEUTROPHILS RELATIVE PERCENT (BEAKER) (test code = 429) 68 % LYMPHOCYTES RELATIVE PERCENT (BEAKER) (test code = 430) 25 % MONOCYTES RELATIVE PERCENT (BEAKER) (test code = 431) 5 % EOSINOPHILS RELATIVE PERCENT (BEAKER) (test code = 432) 1 % BASOPHILS RELATIVE PERCENT (BEAKER) (test code = 437) 1 % NEUTROPHILS ABSOLUTE COUNT (BEAKER) (test code = 670) 4.20 K/ L 1.80-8.00 LYMPHOCYTES ABSOLUTE COUNT (BEAKER) (test code = 414) 1.60 K/ L 1.48-4.50 MONOCYTES ABSOLUTE COUNT (BEAKER) (test code = 415) 0.30 K/ L 0. 00-1.30 EOSINOPHILS ABSOLUTE COUNT (BEAKER) (test code = 416) 0.10 K/ L 0.00-0.50 BASOPHILS ABSOLUTE COUNT (BEAKER) (test code = 417) 0.00 K/ L 0. 00-0.20 (MANUAL DIFFERENTIAL)2017-06-17 17:45:00 Test Item Value Reference Range Interpretation Comments TOTAL COUNTED (BEAKER) (test code = 1351) WBC MORPHOLOGY (BEAKER) (test code = Normal 487) PLT MORPHOLOGY (BEAKER) (test code = Normal 486) ELLIPTOCYTES (BEAKER) (test code = 1+ few 962) HYPOCHROMIA (BEAKER) (test code = 963) 1+ few COMPREHENSIVE METABOLIC [id number] 16:26:00 Test Item Value Reference Range Interpretation [...] DATA T O CALCULATE ESTIM ATED GFR. [id number] 16:26:00 Test Item Value Reference Range Interpretation Comments MAGNESIUM (BEAKER) (test code = 2.4 mg/dL 1.5-3.0 627) [id number] 16:26:00 Test Item Value Reference Range Interpretation Comments PHOSPHORUS (BEAKER) (test code = 3.6 mg/dL 2.5-4.5 604) RAPID DRUG SCREEN, [id number] 16:12:00 Test Item Value Reference Range Interpretation [...] situations. Chain of custody not maintained. Some [id number] medications, as well as adulterants, may cause [...] code = 1663) SOURCE(BEAKER) (test code = 2795)
--- OUTSIDE RECORDS SUMMARY | 2020-06-29 22:04 | XMS REPORT | Clinical Summary ---
:1985 Author Organization [facility] Address [address] [place] [id number] Care Team Providers Name Role Phone Nicolette [...] Not on file Results Not on fileafter 06/29/2019 Insurance Payer Benefit Plan / Group Subscriber ID Type Phone A ddress [facility] [employer] HMO POS SELECT xxxxxxxxx HMO/POS CARE CHOICE
--- OUTSIDE RECORDS SUMMARY | 2020-06-29 22:04 | XMS REPORT | Clinical Summary ---
:1985 Author Organization [facility] Address [address] [place] [address] Care Team Providers Name Role Phone Asked, [...] (six) hours as needed for mild pain. Active Problems Problem Noted Date Syncope and collapse 10/06/2016 Social History Tobacco Use Types Packs/Day Years [...] Signs Not on file Plan of Treatment Health Maintenance Due Date Last Done Comments CERVICAL CANCER SCREENING 2004 INFLUENZA VACCINE 08/06/2020 Results Not on fileafter 06/29/2019 Insurance Payer Benefit Plan / Subscriber ID Effective Dates Phone Addre ss Type Group CVCP CVCP ULYSSES xxxxxxxxx 2016-Present Georges [facility]ERON[facility], [address] [place] [address] Advance Directives For more information, please contact: [phone] Type Date Recorded Patient Property Caretaker Explanati on Advance Directives, Living Will and Medical Power of Electronic Engraver
[2020-06-29] MEDS ORDERED: IBUPROFEN 400 MG TAB ONE (23:42)
[2020-06-30 00:42] LABS: Absolute Lymphocytes (CBC) 2.4 K/uL (0.7-4.9); Basophils % 0.9 % (0-1.3); Hematocrit 31.1 % (36.0-45.0); Lymphocytes % 34.8 % (15.3-44.8); MPV 8.5 fL (7.6-11.3); RBC Red Blood Cell Count 4.44 M/uL (3.86-4.86)
--- NOTE | 2020-06-30 00:48 | ER ---
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 ll1 No cough or known fever. Coronavirus screen: Client denies travel out of the [place] in the last 14 days. fatigue, headache, shortness of breath, Client presents with at least one sign or symptom that may indicate coronavirus-19. Standard/surgical mask placed on the client. Ebola Screen: Patient denies travel to an Ebola-affected area in the 21 days before illness onset. Initial Sepsis Screen: Does the patient meet any 2 criteria? No. Patient's initial sepsis screen is negative. Risk Assessment: Do you want to hurt yourself or someone else? Patient reports no desire to harm self or others. Onset of symptoms was June 29, 2020. 22:20 Method Of Arrival: Ambulatory 1 22:20 Acuity: DIANE 3 ll1 06/30 01:16 Initial Sepsis Screen: Does the patient have a suspected source of infection? No. lp1 Patient's initial sepsis screen is negative. Triage Assessment: 06/29 23:13 Respiratory: the patient has mild shortness of breath. lp1 Historical: - Allergies: 22:23 tramadol; ll1 - PMHx: 22:23 Anemia; Anxiety; chronic back pain; ll1 - PSHx: 22:23 Cholecystectomy; gastric sleeve; Appendectomy; back surgery; Hysterectomy; ll1 - Immunization history:: Flu vaccine is not up to date. - Social history:: Smoking status: Patient denies any tobacco usage or history of. Patient uses alcohol, but reports only rare drinking. Patient/guardian denies using street drugs, IV drugs. Screenin:12 Abuse screen: Denies threats or abuse. Denies injuries from another. Nutritional lp1 screening: No deficits noted. Tuberculosis screening: No symptoms or risk factors identified. Fall Risk None identified. Assessment: 23:00 General: Appears in no apparent distress. Behavior is calm, cooperative, appropriate lp1 for age. Pain: Denies pain. Neuro: Level of Consciousness is awake, alert, obeys commands, Oriented to person, place, time, situation. Cardiovascular: Patient's skin is warm and dry. Respiratory: Reports shortness of breath Airway is patent Trachea midline Respiratory effort is even, unlabored, Respiratory pattern is regular, Breath sounds are clear bilaterally. Onset: The symptoms/episode began/occurred just prior to arrival. GI: No signs and/or symptoms were reported involving the gastrointestinal system. : No signs and/or symptoms were reported regarding the genitourinary system. EENT: No signs and/or symptoms were reported regarding the EENT system. Derm: Skin is intact, Skin is dry, Skin is pale. Musculoskeletal: No deficits noted. 23:35 Reassessment: Patient and/or family updated on plan of care and expected duration. Pain mt2 level reassessed. Patient is alert, oriented x 3, equal unlabored respirations, skin warm/dry/pink. Pain: Complains of pain in face Pain currently is 10 out of 10 on a pain scale. Quality of pain is described as aching. 23:39 Reassessment: Verbal order per Dr. Casillas for CBC and CMP to be drawn. lp1 Vital Signs: 22:20 BP 118 / 69; Pulse 74; Resp 18; Temp 97.8; Pulse Ox 96% ; Weight 127.91 kg; Height 5 ll1 ft. 11 in. (180.34 cm); Pain 6/10; 22:45 BP 100 / 70; Pulse 78; Resp 20; Pulse Ox 99% on R/A; lp1 23:11 BP 111 / 70; Pulse 67; Resp 18; Pulse Ox 97% on R/A; lp1 23:35 Pain 10/10; mt2 06/30 00:00 BP 109 / 70; Pulse 75; Resp 18; Pulse Ox 97% on R/A; lp1 01:17 BP 106 / 52; Pulse 65; Resp 18; Pulse Ox 97% on R/A; lp1 06/29 22:20 Body Mass Index 39.33 (127.91 kg, 180.34 cm) ll1 ED Course: 06/29 22:06 Patient arrived in ED. bp1 22:22 Triage completed. ll1 22:23 Arm band placed on Patient placed in an exam room, on a stretcher. ll1 22:34 Maryam York, AWILDA is Primary Nurse. lp1 22:36 Adán Casillas MD is Attending Physician. tw4 22:54 Chest Single View XRAY In Process Unspecified. EDMS 23:00 Flu and/or RSV swab sent to lab. Strep swab sent to lab. lp1 23:12 Patient has correct armband on for positive identification. Placed in gown. lp1 06/30 00:30 Initial lab(s) drawn, by me, sent to lab. ABG drawn. mt2 01:15 No provider procedures requiring assistance completed. Patient did not have IV access lp1 during this emergency room visit. Administered Medications: 06/29 23:35 Drug: Motrin 800 mg Route: PO; mt2 06/30 01:18 Follow up: Response: No adverse reaction lp1 Outcome: 00:47 Discharge ordered by . tw4 01:16 Discharged to home ambulatory. lp1 01:16 Condition: good 01:16 Discharge instructions given to patient, Instructed on discharge instructions, follow up and referral plans. medication usage, Demonstrated understanding of instructions, follow-up care, medications, Prescriptions given X 1. 01:18 Patient left the ED. lp1 Addendum: 07/02/2020 13:28 Addendum: COVID-19 Result: Negative result given to RN to notify pt. Notified pt of a a5 negative COVID 19 swab results. Pt advised that even with a negative test result they should remain in isolation until symptom free for 3 days without medication. Pt also advised to return to the ED for worsening symptoms. Signatures: Dispatcher [employer] EDWY Nuvia Perez, RN RN aa5 Maryam York RN RN lp1 Adán Casillas MD MD tw4 Ana Bhatt RN RN 1 Diane Allen Marlene, RN RN mt2 Corrections: (The following items were deleted from the chart) 06/29 23:12 23:12 Fall Risk lp1 lp1
--- NOTE | 2020-06-30 00:48 | EDPHYS ---
Physician Documentation [facility] Name: Emerald Alejandro Age: 35 yrs Sex: Female : 1985 Arrival Date: 06/29/2020 Time: 22:06 Bed 8 Private MD: ED Physician Adán Casillas HPI: 06/29 23:50 This 35 yrs old Female presents to ER via Ambulatory with complaints of tw4 Shortness Of Breath. 23:50 The patient has shortness of breath at rest. Onset: The symptoms/episode began/occurred tw4 2 day(s) ago. Duration: The symptoms are continuous, and are unchanged since they started. The patient's shortness of breath has no apparent modifying factors. Severity of symptoms: At their worst the symptoms were moderate in the emergency department the symptoms are unchanged. The patient has not experienced similar symptoms in the past. Historical: - Allergies: 22:23 tramadol; ll1 - PMHx: 22:23 Anemia; Anxiety; chronic back pain; ll1 - PSHx: 22:23 Cholecystectomy; gastric sleeve; Appendectomy; back surgery; Hysterectomy; ll1 - Immunization history:: Flu vaccine is not up to date. - Social history:: Smoking status: Patient denies any tobacco usage or history of. Patient uses alcohol, but reports only rare drinking. Patient/guardian denies using street drugs, IV drugs. ROS: 23:50 Constitutional: Negative for fever, chills, and weight loss, Eyes: Negative for injury, tw4 pain, redness, and discharge, Cardiovascular: Negative for chest pain, palpitations, and edema, Abdomen/GI: Negative for abdominal pain, nausea, vomiting, diarrhea, and constipation, Back: Negative for injury and pain, MS/Extremity: Negative for injury and deformity, Skin: Negative for injury, rash, and discoloration, Neuro: Negative for headache, weakness, numbness, tingling, and seizure. 23:50 Respiratory: Positive for shortness of breath. Exam: 23:50 Constitutional: This is a well developed, well nourished patient who is awake, alert, tw4 and in no acute distress. Head/Face: Normocephalic, atraumatic. Cardiovascular: Regular rate and rhythm with a normal S1 and S2. No gallops, murmurs, or rubs. Normal PMI, no JVD. No pulse deficits. Respiratory: Lungs have equal breath sounds bilaterally, clear to auscultation and percussion. No rales, rhonchi or wheezes noted. No increased work of breathing, no retractions or nasal flaring. Abdomen/GI: Soft, non-tender, with normal bowel sounds. No distension or tympany. No guarding or rebound. No evidence of tenderness throughout. Back: No spinal tenderness. No costovertebral tenderness. Full range of motion. MS/ Extremity: Pulses equal, no cyanosis. Neurovascular intact. Full, normal range of motion. Neuro: Awake and alert, GCS 15, oriented to person, place, time, and situation. Cranial nerves II-XII grossly intact. Motor strength 5/5 in all extremities. Sensory grossly intact. Cerebellar exam normal. Normal gait. Vital Signs: 22:20 BP 118 / 69; Pulse 74; Resp 18; Temp 97.8; Pulse Ox 96% ; Weight 127.91 kg; Height 5 ll1 ft. 11 in. (180.34 cm); Pain 6/10; 22:45 BP 100 / 70; Pulse 78; Resp 20; Pulse Ox 99% on R/A; lp1 23:11 BP 111 / 70; Pulse 67; Resp 18; Pulse Ox 97% on R/A; lp1 23:35 Pain 10/10; mt2 06/30 00:00 BP 109 / 70; Pulse 75; Resp 18; Pulse Ox 97% on R/A; lp1 01:17 BP 106 / 52; Pulse 65; Resp 18; Pulse Ox 97% on R/A; lp1 06/29 22:20 Body Mass Index 39.33 (127.91 kg, 180.34 cm) ll1 MDM: 06/29 22:36 Patient medically screened. tw4 06/30 06:07 Differential diagnosis: asthma, pneumonia, pulmonary edema, Pulmonary Embolism reactive tw4 airway disease. Data reviewed: vital signs, nurses notes. Data interpreted: Pulse oximetry: Interpretation: normal. Counseling: I had a detailed discussion with the patient and/or guardian regarding: the historical points, exam findings, and any diagnostic results supporting the discharge/admit diagnosis, lab results, radiology results. Special discussion: I discussed with the patient/guardian in detail that at this point there is no indication for admission to the hospital. It is understood, however, that if the symptoms persist or worsen the patient needs to return immediately for re-evaluation. 06/29 22:47 Order name: COVID-19 mt2 06/29 22:47 Order name: Flu; Complete Time: 00:45 mt2 06/30 00:46 Interpretation: Within normal limits. 4 06/29 22:47 Order name: Strep; Complete Time: 00:45 mt2 06/30 00:46 Interpretation: Within normal limits. [facility] 06/29 23:39 Order name: CBC with Diff; Complete Time: 00:45 lp1 06/30 00:46 Interpretation: Normal except: HCT 31.1; HGB 10.0; MCV 70.2; MCH 22.6; RDW 17.1. [facility] 06/29 23:39 Order name: CMP; Complete Time: 01:04 lp1 06/30 01:05 Interpretation: Normal except: CL 111; GFR 84. [facility] 06/29 23:57 Order name: Throat Culture [facility] 06/29 22:41 Order name: Chest Single View XRAY [facility] 06/29 22:47 Order name: Document PUI#; Complete Time: 23:09 il2 06/29 22:47 Order name: Droplet/Contact Precautions; Complete Time: 23:09 mt2 06/29 22:47 Order name: Labs collected and sent; Complete Time: 23:09 il2 06/29 22:47 Order name: Notify Health Dept [phone]/ ; Complete Time: 23:09 mt2 06/29 22:47 Order name: O2 Per Protocol; Complete Time: 23:09 mt2 Administered Medications: 06/29 23:35 Drug: Motrin 800 mg Route: PO; il2 06/30 01:18 Follow up: Response: No adverse reaction lp1 Disposition: 06/30/20 00:47 Discharged to Home. Impression: Dyspnea, unspecified. - Condition is Stable. - Discharge Instructions: Shortness of Breath. - Prescriptions for Albuterol Sulfate 90 mcg/actuation - inhale 1-2 puff by INHALATION route every 4-6 hours; 1 Inhaler. - Work release form, Medication Reconciliation Form, Thank You Letter, Antibiotic Education, Prescription Opioid Use form. - Follow up: Private Physician; When: Upon discharge from the Emergency Department; Reason: Recheck today's complaints, Continuance of care, Re-evaluation by your physician. - Problem is new. - Symptoms have improved. Signatures: Dispatcher [employer] EDMS Maryam York RN RN lp1 Adán Casillas MD MD tw4 Ana Bhatt RN RN ll1 Tammy Moise RN RN mt2 Corrections: (The following items were deleted from the chart) 01:18 00:47 06/30/2020 00:47 Discharged to Home. Impression: Dyspnea, unspecified. Condition lp1 is Stable. Forms are Medication Reconciliation Form, Thank You Letter, Antibiotic Education, Prescription Opioid Use. Follow up: Private Physician; When: Upon discharge from the Emergency Department; Reason: Recheck today's complaints, Continuance of care, Re-evaluation by your physician. Problem is new. Symptoms have improved. tw4
[2020-06-30 00:51] LABS: Albumin 3.2 g/dL (3.4-5.0); Bilirubin Total 0.2 mg/dL (0.2-1.0); Potassium 3.9 mmol/L (3.5-5.1); Protein, Total 7.3 g/dL (6.4-8.2)
--- NOTE | 2020-06-30 08:05 | RAD REPORT ---
EXAM DESCRIPTION: [place] Single View06/29/2020 10:54 pm CLINICAL HISTORY: Shortness of breath COMPARISON: 2011 FINDINGS: The lungs appear clear of acute infiltrate. The heart is normal size IMPRESSION: No acute abnormalities displayed
[2020-07-04 08:37] VITALS: TEMP 97.8
[2020-07-04 08:39] VITALS: O2SAT 97
[2020-07-04 08:43] VITALS: BP 106/52
== END 2020-06-30 01:18 | disposition home or self-care (01) ==
LOC: ER 22:02
DX: R06.00 Dyspnea, unspecified (principal); Z11.59 Encounter for screening for other viral diseases
CPT/HCPCS: 87070; 85025; 36415; 87081; 80053; 87804 ×2; 71045; 99284; U0002

== ENCOUNTER 2020-12-29 16:23 | Emergency (ER) | payer BC, OTHER ==
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
[2020-12-29] MEDS ORDERED: ONDANSETRON 4 MG/2 ML VIAL ONE (17:00)
[2020-12-29] MEDS ORDERED: MORPHINE 4 MG/ML SYR ONE ×2 (17:00→19:25)
[2020-12-29] MEDS ORDERED: NA CHLORIDE 0.9% 1,000 ML ONE (17:10)
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
[2020-12-29 18:43] LABS: Potassium 3.6 mmol/L (3.5-5.1)
[2020-12-29 18:58] LABS: Absolute Lymphocytes (CBC) 1.5 K/uL (0.7-4.9); Basophils % 0.6 % (0-1.3); Hematocrit 33.9 % (36.0-45.0); Lymphocytes % 15.3 % (15.3-44.8); MPV 8.2 fL (7.6-11.3); RBC Red Blood Cell Count 4.85 M/uL (3.86-4.86)
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
[2020-12-29 19:27] LABS: Blood Morphology Comment NOTED (NOT SEEN); Platelet Estimate ADEQ; White Blood Cell Scan OK (OK)
[2020-12-29 20:18] VITALS: TEMP 97.5
[2020-12-29 20:21] VITALS: BP 119/65; O2SAT 100
== END 2020-12-29 20:12 | disposition home or self-care (01) ==
LOC: ER 16:23
DX: S16.1XXA Strain of muscle, fascia and tendon at neck level, initial encounter (principal); S00.33XA Contusion of nose, initial encounter; S80.11XA Contusion of right lower leg, initial encounter; S30.1XXA Contusion of abdominal wall, initial encounter; V43.53XA Car driver injured in collision with pick-up truck in traffic accident, initial encounter; Z88.5 Allergy status to narcotic agent; F41.8 Other specified anxiety disorders
CPT/HCPCS: 85025; 80048; 36415; 86900; 86850; 86901; 70450; 72125; 71260; 70486; 76377; 74177; 73562; Q9967; J7030; J2405; 96374; 96375; 99284; G0390

== ENCOUNTER 2022-11-08 00:31 | Emergency (ER) | payer SELFPAY ==
--- OUTSIDE RECORDS SUMMARY | 2022-11-08 00:36 | XMS REPORT | Continuity of Care Document ---
:1985 Author Organization [facility] t Address [address] [place] [address] Care Team Providers Name Role Phone Asked, No Pcp Primary Care Physician Unavailable DIEGO KEITH Attending Clinician Unavailable ANTOINE SANON Attending Clinician Unavailable MARCO BRAUN Attending Clinician Unavailable VENKAT CULLEN Attending Clinician Unavailable LE CHONG Attending Clinician Unavailable DEITH MULLIGAN Attending Clinician Unavailable ANGEL GERONIMO Attending Clinician Unavailable BABS LOMAX Attending Clinician Unavailable Jo-Ann Velasco MD Attending Clinician DR TERRENCE ENCARNACION Attending Clinician Unavailable MARY SANTA Attending Clinician Unavailable Desiree Siddiqui Attending Clinician UCHE LUCIO Attending Clinician Unavailable DR ISIS CASTREJON Attending Clinician Unavailable TRACEY LAMB Attending Clinician Unavailable DR TERRENCE ENCARNACION Admitting Clinician Unavailable CASTREJON, DR ISIS Admitting Clinician Unavailable Payers Payer Name Policy Type Policy Number Effective Date Expiration Date S anna BCBS 2 [id number] 2022 00:00:00 [employer] [place] [id number] 2020 00:00:00 [place] 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:00: - secondary secondary 00 Exte rna to to l inadequate inadequate dietary dietary iron iron intake intake Pneumonia Pneumonia Disease Active 2021-11 Doc sey of both of both 2-14 Seybold lower lower 00:00: - lobes due lobes due 00 Exte rna to to l infectious infectious organism organism Current Current Disease Active 2021-11 Harriet mild mild 2-14 Seybold episode of episode of 00:00: - major major 00 Externa depressive depressive l disorder disorder without without prior prior episode episode Varicose Varicose Disease Active Kelse y veins of veins of 3-04 Seybol d lower lower 00:00: - extremitie extremitie 00 Ex terna s without s without l ulcer or ulcer or inflammati inflammati on, on, unspecifie unspecifie d d laterality laterality Hilar Hilar Disease Active Overview: Univer s lymphadeno lymphadeno 12-03 Added it y of bud bud 00:00: automatic ally from Medical request Branch for surgery [id number] Pneumonia Pneumonia Disease Active 2017-11 Uni vers ity of 00:00: [place] 00 Medical Branch Sepsis Sepsis Disease Active 2017-11 Univers 01-03 ity of 00:00: Medical Branch Syncope Syncope Disease Active 2015-11 Methodi and and 12-07 st collapse collapse 00:00: Hospit a 00 l Obesity Obesity Disease Active 2015-11 Univers (BMI (BMI 1-28 ity of 30-39.9) 30-39.9) 00:00: Medical Branch Tobacco Tobacco Disease Active Overview: Univ ers use use 4-15 Patient ity of disorder disorder 00:00: reports she has Medical cut down Branch drastical ly and plans to completel y quit within the next week. Morbid Morbid Disease Active Univers obesity obesity 4-11 ity of 00:00: Medical Branch History of History of Disease Active U nivers abnormal abnormal 4-11 ity of Pap smear Pap smear [place] [facility] [place] History of History of Disease Active U nivers ovarian ovarian 4- ity of cyst cyst 00:00: Medical Branch Irregular Irregular Disease Active Overview: Univers menstrual menstrual 4-11 ER visit it y of cycle cycle 00:00: 07/05/2014 [facility] Medical nal Branch pelvic ultrasoun d: Impressio n: 1. No evidence of endometri al mass; filling defect or abnormal endometri al fluid. 2.No abnormal adnexal masses or fluid collectio ns. 3.No evidence of intrauter ine Hgb at 7.6Blood type O + IAT neg Allergies, Adverse Reactions, Alerts Allergy Allergy Status Severity Reaction(s) Onset Inactive Treating Comm ents Source Name Type Date Date Clinician Methocar Propensi Active Method i bamol ty to 6 st adverse 00:00: Hospita reaction 00 l s to drug Methocar Propensi Active Shortness of Harriet bamol ty to Breath 4-11 Seybold adverse 00:00: - reaction 00 Externa s l Methocar Propensi Active Shortness of Harriet bamol ty to Breath 4-11 Seybold adverse 00:00: reaction 00 s Nabumeto Propensi Active Other (See Chills, M ethodi ne ty to Comments) 8-[address] adverse 00:00: sweats, Hospita reaction 00 tremors l s to drug Tramadol Propensi Active Other 2015-11 Harriet ty to 2-06 Seybold adverse 00:00: - reaction 00 Externa s to l drug Tramadol Propensi Active 2015-11 Method i ty to 0-14 st adverse 00:00: Hospita reaction 00 l s to drug Tramadol Propensi Active Rash 0 Univer s ty to 713 ity of adverse 00:00: [place] reaction 00 Medical s Branch TRAMADOL DRUG Active ITCHING Univers INGREDI 7-13 ity of 00:00: [place] 00 Medical Branch Tramadol DA Active Moderate Irritable [facility] Methocar DA Active Unknown [facility] Toradol DA Active Moderate Anxiety [facility] Social History Social Habit Start Date Stop Date Quantity Comments Source History of tobacco Cigarette Smoker Harriet Yan - use External History SDOH Harriet grande - Alcohol Binge External Exposure to Not sure Harriet godfrey SARS-CoV-2 (event) Tobacco use and 2021-01-07 2021-01-07 Smokeless Harriet Langley ybold - exposure 00:00:00 00:00:00 tobacco non-user External History SDOH 2021-01-07 2021-01-07 2 Harriet grande - Alcohol Frequency 00:00:00 00:00:00 Externa l History SDOH 2021-01-07 2021-01-07 1 Harriet grande - Alcohol Std Drinks 00:00:00 00:00:00 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 Cigarettes smoked 2019-04-27 2019-04-27 Univers ity of current (pack per 00:00:00 00:00:00 [facility] ) - Reported Branch Cigarette 2019-04-27 2019-04-27 University of pack-years 00:00:00 00:00:00 [facility] Alcohol intake 2017-06-17 2017-06-[address] [facility] 00:00:00 00:00:00 non-drinker of Medical Ce nter alcohol (finding) Alcohol Comment 2016-10-11 2016-10-11 rarely Harriet Langley ybold - 00:00:00 00:00:00 External Sex Assigned At [address] [facility] 00:00:00 00:00:00 [facility] Smoking Status Start Date Stop Date Source Ex-smoker 2021-01-07 00:00:00 2021-01-07 Harriet grande - 00:00:00 External Occasional tobacco smoker 2019-05-01 00:00:00 [facility] [place] [facility] Never smoker [facility] Medications Ordered Filled Start Stop Current Ordering Indication Dosage Frequency Signature Comments Components Source Medication Medication Date Date Medication? Clinician (SIG) Name Name Omeprazole 2021-11 Yes 20mg Take 20 mg K elsey 20 MG oral 2-14 by mouth Seybo ld Delayed 11:05: daily - Release 41 Externa Capsule l Progesteron 2021-11- No 200mg Take 200 Harriet e 200 MG 2-14 12-14 mg by Seybold oral 11:02: 00:00 mouth - Capsule 13 :00 daily Externa l Multiple 2021-11 Yes Take by Harriet Vitamins-Mi 2-14 mouth Seybold nerals 10:31: - (MULTIVITAM 04 Externa IN ADULT l OR) Melatonin 2021-11 Yes Take by Kelse y 2.5 MG oral 2-14 mouth Seybold Cap 10:31: - 04 Externa l Propranolol 2021-11 Yes [id number] 10mg Q.5D Take 1 Hrariet HCl 10 MG 2-14 tablet (10 Seyb old oral Tablet 00:00: mg total) - 00 by mouth 2 Externa times l daily as needed (anxiety) Bupropion 2021-11 Yes [id number] 300mg Take 1 K elsey HCL XL 300 2-14 tablet Seybold MG OR TB24 00:00: (300 mg - 00 total) by Externa mouth l daily Meloxicam 2021-11 Yes [id number] 15mg QD Take 1 K elsey 15 MG oral 2-14 tablet (15 Sey bold Tablet 00:00: mg total) - 00 by mouth Externa daily as l needed for pain Please start taking as soon as possible. Gabapentin 2021-11 Yes [id number] 600mg Take 1 Harriet 600 MG oral 2-14 tablet Seybol d Tablet 00:00: (600 mg - 00 total) by Externa mouth 3 l times daily Acetaminoph 2021-11 Yes 1{tbl} Q4H Take 1 Ke lsey en-Codeine 2-06 tablet by Seyb old 300-30 MG 00:00: mouth - oral Tablet 00 every 4 Exter na hours as l needed for pain Acetaminoph 2021-11- No 1{tbl} Q4H Take 1 K elsey en-Codeine 2-06 12-14 tablet by Sey bold 300-30 MG 00:00: 00:00 mouth - oral Tablet 00 :00 every 4 Exter na hours as l needed for pain Clonazepam 2021-11 Yes [id number] TAKE 1 K elsey 2 MG oral 1-28 TABLET BY Seybo ld Tablet 00:00: MOUTH - 00 THREE Externa TIMES l DAILY NEEDED FOR ANXIETY Progesteron 2021-11 Yes [id number] Take 1 Harriet e 200 MG 1-28 capsule by Seybo ld oral 00:00: mouth once - Capsule 00 daily Externa l Clonazepam 2021-11 Yes [id number] TAKE 1 K elsey 2 MG oral 1-28 TABLET BY Seybo ld Tablet 00:00: MOUTH - 00 THREE Externa TIMES l DAILY NEEDED FOR ANXIETY Progesteron 2021-11 Yes [id number] Take 1 Harriet e 200 MG 1-28 capsule by Seybo ld oral 00:00: mouth once - Capsule 00 daily Externa l Gabapentin 2021-11 Yes Take 1 Kelse y 600 MG oral 0-31 tablet by Sey bold Tablet 00:00: mouth 4 - 00 times Externa daily l Gabapentin 2021-11- No Take 1 Rosa ey 600 MG oral 0-31 12-14 tablet by Se ybold Tablet 00:00: 00:00 mouth 4 - 00 :00 times Externa daily l Estradiol 2 2021-11 Yes [id number] Take 1 Harriet MG oral 0-24 tablet by Seybold Tablet 00:00: mouth once - 00 daily Externa l Estradiol 2 2021-11 Yes [id number] Take 1 Harriet MG oral 0-24 tablet by Seybold Tablet 00:00: mouth once - 00 daily Externa l Albuterol 2021-11 Yes 2{puff} Q.25D Inhale 2 Harriet HFA 108 (90 0-13 puffs into Se ybold [employer]) 00:00: the lungs - MCG/ACT IN 00 every 6 Marine 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 Gabapentin 2021- No 600mg Take 1 Doc sey 600 MG oral 8-17 12-14 tablet Seybo ld Tablet 00:00: 00:00 (600 mg - 00 :00 total) by Externa mouth 5 l times daily Meloxicam 2021- No 15mg Take 1 Kelse y 15 MG oral 8-17 12-14 tablet (15 Se ybold Tablet 00:00: 00:00 mg total) - 00 :00 by mouth Externa daily l Please start taking as soon as possible. Multiple Yes Take by Harriet Vitamins-Mi 8- mouth Seybold nerals 10:08: - (MULTIVITAM 50 Externa IN ADULT l OR) Melatonin Yes Take by Kelse y 2.5 MG oral 8-01 mouth Seybold Cap 10:08: - 50 Externa l Ondansetron Yes [id number] 4mg Q.[id number] Take 1 Harriet HCl 4 MG 8- [id number] tablet (4 Seybold oral Tablet 00:00: 3D mg total) - 00 by mouth Externa every 8 l hours as needed for nausea Ondansetron 2021- No [id number] 4mg Q.[id number] Take 1 Harriet HCl 4 MG 8-01 12-14 [id number] tablet (4 Seybold oral Tablet 00:00: 00:00 3D mg total) - 00 :00 by mouth Externa every 8 l hours as needed for nausea Tizanidine Yes 2mg QD Take 1 Kelse y HCl 2 MG 7-28 tablet (2 Seybol d oral Tablet 00:00: mg total) - 00 by mouth Externa nightly as l needed for muscle spasms Tizanidine 2021- No 2mg QD Take 1 Rosa ey HCl 2 MG 7-28 12-14 tablet (2 Seybo ld oral Tablet 00:00: 00:00 mg total) - 00 :00 by mouth Externa nightly as l needed for muscle spasms Bupropion Yes [id number] 150mg Take 1 K elsey HCL XL 150 1-04 tablet Seybold MG OR TB24 00:00: (150 mg 00 total) by mouth daily Clonazepam Yes [id number] 2mg Q.[id number] Take 1 Harriet 2 MG oral 1-04 [id number] tablet (2 Seybold Tablet 00:00: 3D mg total) 00 by mouth 3 times daily as needed for anxiety Progesteron Yes [id number] 200mg Take 1 Harriet e 200 MG 1-04 capsule Seybold oral 00:00: (200 mg Capsule 00 total) by mouth daily Bupropion Yes [id number] 150mg Take 1 K elsey HCL XL 150 1-04 tablet Seybold MG OR TB24 00:00: (150 mg - 00 total) by Externa mouth l daily Bupropion 2021- No [id number] 150mg Take 1 Harriet HCL XL 150 1-04 12-14 tablet Seybol d MG OR TB24 00:00: 00:00 (150 mg - 00 :00 total) by Externa mouth l daily Citalopram 2020-11- No [id number] 20mg Take 1 Harriet Hydrobromid 11-09 tablet (20 S eybold e 20 MG 00:00: 00:00 mg total) oral Tablet 00 :00 by mouth daily (for anxiety/de pression) Clonazepam 2020-11- No [id number] TAKE 1 Harriet 1 MG oral 12-15 TABLET BY Seyb old Tablet 00:00: 00:00 MOUTH 00 :00 THREE TIMES DAILY NEEDED FOR ANXIETY Progesteron 2020-11- No [id number] Take 1 Harriet e 200 MG 12-15 capsule by Seyb old oral 00:00: 00:00 mouth once Capsule 00 :00 daily Gabapentin Yes Four times K elsey 600 MG oral 7-19 a day Seybold Tablet 00:00: 00 Multiple Yes Take by Harriet Vitamins-Mi 01-25 mouth Seybold nerals 14:46: (MULTIVITAM 05 IN ADULT OR) Melatonin Yes Take by Kelse y 2.5 MG oral 22 mouth Seybold Cap 14:46: 05 Mupirocin Yes [id number] Apply to Harriet (Bactroban) 01-05 wound BID Sey bold 2 % apply 00:00: externally 00 Ointment Tizanidine Yes 2mg QD Take 1 Kelse y HCl 2 MG 01-05 tablet (2 Seybol d oral Tablet 00:00: mg total) 00 by mouth nightly as needed for muscle spasms FLUTICASONE 2021- No 50ug Use 1 Rosa ey PROPIONATE, 01-05 03-03 spray (50 Se ybold NASAL, 00:00: 05:59 mcg total) (Flonase) 00 :00 in each 50 MCG/ACT nostril 2 nasal times Suspension daily Estradiol Yes [id number] 2mg Take 1 K elsey (Estrace) 2 2-04 tablet (2 Sey bold MG oral Tab 00:00: mg total) 00 by mouth daily ibuprofen Yes 800mg Q6H Take 800 Met hodi (ADVIL,MOTR 6-[address] IN) 800 MG 11:48: mouth Hospit a tablet 16 every 6 l (six) hours as needed for mild pain. ranitidine Yes 150mg Q.5D Take 150 Me thodi (ZANTAC) 6-[address] 150 MG 11:47: mouth 2 Hospita tablet 58 (two) l times a day. omeprazole Yes 20mg QD Take 20 mg M ethodi (PriLOSEC) 6-[address] 20 MG 11:47: daily. Hospita capsule 57 l FLUoxetine Yes 10mg QD Take 10 mg M ethodi (PROzac) 10 6-[address] MG capsule 11:47: daily. Hospi ta 19 l estradiol Yes 2mg QD Take 2 mg Met hodi (ESTRACE) 1 6-[address] MG tablet 11:46: daily. Hospit a 45 l progesteron Yes 200mg QD Take 200 M ethodi e 6-[address] (PROMETRIUM 11:46: mouth Hospi ta ) 200 MG 45 daily. l capsule gabapentin Yes 600mg Q.[id number] Take 600 Methodi (NEURONTIN) 6-26 [id number] mg by s t 300 MG 11:46: 3D mouth 3 Hospita capsule 45 (three) l times a day. ranitidine 2018- Yes [id number] 150mg Take 1 Univers (ZANTAC) 6-22 tablet by ity of 150 mg 00:00: mouth 2 [place] tablet 00 (two) Medical times Branch daily. Follow up with your MD for further evaluation and treatment. clonazePAM Yes 1mg Take 1 mg Un nikunj (KLONOPIN) 3-14 by mouth 3 ity of 1 mg tablet 18:35: (three) Gurjit as 18 times Medical daily. Branch methylPREDN Yes [id number] Take by Univers ISolone 4 2-07 mouth ity of mg tablets 00:00: SEE-INSTRU [place] 00 CTIONS. Medical follow Branch package directions cyclobenzap 2018- Yes [id number] 5mg Take 1 Univers rine 5 mg 2-07 tablet by ity o f tablet 00:00: mouth at [place] 00 bedtime as Medical needed for Branch Muscle Spasms. Multivitami 2018- Yes [id number] Take by Univers ns 2-06 mouth. ity of (CHEWABLE-V 17:44: [place] ITE) Chew 15 Medical Branch gabapentin Yes 600mg Take 600 Un nikunj 300 mg 2-06 mg by ity of capsule 17:44: mouth 3 [place] 15 (three) Medical times Branch daily. progesteron Yes 200mg Take 200 U nivers e 100 mg 2-06 mg by ity of capsule 17:44: mouth [place] 15 daily. Medical Branch estradiol 1 Yes 2mg Take 2 mg U nivers mg tablet 2-06 by mouth ity of 17:44: daily. [place] 15 Medical Branch HYDROcodone Yes 1{tbl} Take [address] -acetaminop 8-12 tablet by Donald march (NORCO 15:09: mouth Medica l 5-325) 21 every 6 Center 5-325 mg (six) per tablet hours as needed for Pain. ALPRAZolam Yes .25mg Take 0.[address] (XANAX) 8-12 mg by [facility] 0.25 MG 15:09: mouth 3 Medical tablet 05 (three) Center times daily as needed for Anxiety. traMADol Yes 50mg Take [address] (ULTRAM) 50 8-12 by mouth Luke s mg tablet 15:09: every 6 Medic al 05 (six) Center hours as needed for Pain. cyclobenzap 2016- Yes 10mg Take [address] rine 8-12 by mouth 3 [facility] (FLEXERIL) 15:09: (three) Medi aneudy 10 MG 05 times Center tablet daily as needed for Muscle spasms. Immunizations Ordered Immunization Filled Immunization Date Status Commen ts Source Name Name Influenza Virus 2022-05-23 Completed Harriet Se ybold - Vaccine, Unspecified 00:00:00 Exte rnal Formulation Influenza Virus 2021-09-09 Completed Harriet Se ybold - Vaccine, No Preserv, 00:00:00 Exte rnal age 6 months and up Influenza Virus 2021-09-06 Completed Harriet Langley ybold - Vaccine, Unspecified 00:00:00 Exte rnal Formulation Pneumococcal Vaccine, 2020-07-15 Completed Doc sey Seybold - Polysaccharide 00:00:00 External Pneumococcal Vaccine, 2020-07-15 Completed Doc sey Seybold Polysaccharide 00:00:00 Pneumococcal Vaccine, 2020-07-15 Completed Doc sey Seybold - Polysaccharide 00:00:00 External Influenza Virus 2020-07-09 Completed Harriet Se ybold - Vaccine, No Preserv, 00:00:00 Exte rnal age 6 months and up Influenza Virus 2020-07-09 Completed Harriet Se ybold Vaccine, No Preserv, 00:00:00 age 6 months and up Influenza Virus 2020-07-09 Completed Harriet Se ybold - Vaccine, No Preserv, 00:00:00 Exte rnal age 6 months and up Influenza Virus 2018-10-04 Completed Harriet Se ybold - Vaccine, No Preserv, 00:00:00 Exte rnal age 6 months and up Influenza Virus 2018-10-04 Completed Harriet Se ybold Vaccine, No Preserv, 00:00:00 age 6 months and up Influenza Virus 2018-10-04 Completed Harriet Langley ybold - Vaccine, No Preserv, 00:00:00 Exte rnal age 6 months and up Influenza Virus 2018-10-04 Completed Universit y of Vaccine Quad .5 mL IM 00:00:00 Gurjit as Medical 6+ MO Branch Td- Tetanus & 2010 Completed Harriet Santillan old - Diphtheria Vaccine 00:00:00 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 (age 7+ years) Td- Tetanus & 2010 Completed Harriet Santillan old Diphtheria Vaccine 00:00:00 (age 7+ years) Td- Tetanus & 2010 Completed Harriet Santillan old - Diphtheria Vaccine 00:00:00 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 (age 7+ years) Td 2010 Completed University of 00:00:00 [facility] Vital Signs Vital Name Observation Time Observation Value Comments Source Systolic blood 2022-10-19 16:26:00 112 mm[Hg] Harriet Seybold - pressure External Diastolic blood 2022-10-19 16:26:00 74 mm[Hg] Kel y Seybold - pressure External Heart rate 2022-10-19 16:26:00 93 /min Harriet Bowman eybold - External Body temperature 2022-10-19 16:26:00 36 Dora Rosa ey Seybold - External Respiratory rate 2022-10-19 16:26:00 14 /min Rosa ey Seybold - External Body height 2022-10-19 16:26:00 182.9 cm Harriet S eybold - External Body weight 2022-10-19 16:26:00 134.265 kg Harriet S eybold - External BMI 2022-10-19 16:26:00 40.14 kg/m2 Harriet S eybold - External Height 2021-03-05 04:15:00 180.34 CM Weight 2021-03-05 04:15:00 133.8 KG Height 2021-03-03 10:47:00 180.34 CM Weight 2021-03-03 10:47:00 127 KG Height 2020-08-28 04:20:00 180.34 CM Weight 2020-08-28 04:20:00 139.7 KG Height 2020-08-27 10:22:00 180.34 CM Weight 2020-08-27 10:22:00 128.82 KG Height 2018-03-28 08:31:00 180.34 CM Weight 2018-03-28 08:31:00 114.75 KG Procedures Procedure Date / Time Performed Performing Clinician [facility] e REPAIR LT ANKLE BURSA 2021-03-05 00:00:00 Anton godfrey [facility] LIGAMENT OPEN Center REPOSITION LT FIBULA IF 2021-03-05 00:00:00 [facility] DEVC OPN Center DIV LT FOOT SUBQ TISSUE 2020-08-28 00:00:00 [facility] FASCIA OPEN Center INTRO ANESTHETIC AGENT 2018-03-28 00:00:00 [facility] Medical JOINTS PERQ Center INTRO AIF JOINTS PERQ 2018-03-28 00:00:00 [facility] Plan of Care Planned Activity Planned Date Details Comments Source Future Scheduled 2022-08-18 [facility] 10:06:09 VACCINES (1 of 3 - 3-dose series) [code = HEPATITIS B VACCINES (1 of 3 - 3-dose series)] Future Scheduled 2022-08-18 COVID-19 VACCINE [facility] Test 10:06:09 (#1) [code = COVID-19 VACCINE (#1)] Future Scheduled 2022-08-18 Screening for [facility] Test 10:06:09 malignant neoplasm of cervix (procedure) [code = 421968761] Future Scheduled 2022-08-18 INFLUENZA VACCINE [facility] Test 10:06:09 [code = INFLUENZA VACCINE] Encounters Start End Encounter Admission Attending Care Care Encounter Source Date/Time Date/Time Type Type Clinicians Facility Department ID 2022-12-08 2022-12-08 Outpatient HARRIET KEITH [id number] Harriet 16:00:00 16:00:00 DIEGO Seyb old 2022-11-01 2022-11-01 Outpatient HARRIET KEITH [id number] Harriet 00:00:00 00:00:00 DIEGO Seyb old 2022-10-27 2022-10-27 Outpatient HARRIET SANON [id number] Harriet 00:00:00 00:00:00 ANTOINE Seileanaol d 2022-10-26 2022-10-26 Outpatient HARRIET SANON [id number] Harriet 00:00:00 00:00:00 ANTOINE Seybol d 2022-10-26 2022-10-26 Outpatient HARRIET SANON [id number] Harriet 00:00:00 00:00:00 ANTOINE Seybol d 2022-10-25 2022-10-25 Outpatient PREZAS, HARRIET PRINCE [id number] Harriet 00:00:00 00:00:00 ANTOINE Seybol d 2022-10-24 2022-10-24 Outpatient PREZAColby, HARRIET PRINCE [id number] Harriet 00:00:00 00:00:00 ANTOINE Seybol d 2022-10-20 2022-10-20 Outpatient BRAUN, HARRIET PRINCE [id number] Harriet 16:30:00 16:30:00 MARCO Seyb old 2022-10-20 2022-10-20 Outpatient BRAUN, HARRIET PRINCE [id number] Harriet 16:00:00 16:00:00 MARCO Seyb old 2022-10-19 2022-10-19 Outpatient PREZAS, HARRIET PRINCE [id number] Harriet 10:30:00 10:30:00 ANTOINE Seybol d 2022-10-19 2022-10-19 Outpatient PREZAColby, HARRIET PRINCE [id number] Harriet 10:30:00 10:30:00 ANTOINE Seybol d 2022-10-19 2022-10-19 Outpatient HUNDHARRIET Hart [id number] Harriet 09:00:00 09:00:00 VENKAT Seybol d 2022-10-19 2022-10-19 Outpatient ONWUCHDELFINO PRINCE [id number] Harriet 07:30:00 07:30:00 , LE Sey bold 2022-10-19 2022-10-19 Outpatient ONWUCHURUBA HARRIET PRINCE [id number] Harriet 00:00:00 00:00:00 , LE Sey bold 2022-10-19 2022-10-19 Outpatient HARRIET KEITH [id number] Harriet 00:00:00 00:00:00 DIEGO Seyb old 2022-10-18 2022-10-18 Outpatient ONWUCHURUBA HARRIET PRINCE [id number] Harriet 11:30:00 11:30:00 , LE Sey bold 2022-10-11 2022-10-11 Outpatient HARRIET KEITH [id number] Harriet 00:00:00 00:00:00 DIEGO Seyb old 2022-10-11 2022-10-11 Outpatient HARRIET MULLIGAN [id number] Harriet 00:00:00 00:00:00 EDITH Seybol d 2022-10-07 2022-10-07 Outpatient [facility] [id number] Quentin 20:40:17 20:40:17 [id number] F Butch 2022-10-06 2022-10-06 Outpatient HARRIET KEITH [id number] Harriet 00:00:00 00:00:00 DIEGO Seyb old 2022-09-22 2022-09-22 Outpatient HARRIET KEITH [id number] Harriet 00:00:00 00:00:00 DIEGO Seyb old 2022-09-21 2022-09-21 Outpatient HARRIET KEITH [id number] Harriet 00:00:00 00:00:00 DIEGO Seyb old 2022-08-18 2022-08-18 Outpatient HARRIET EGRONIMO [id number] Harriet 15:30:00 15:30:00 ANGEL Seybol d 2022-08-18 2022-08-18 Outpatient HARRIET LOMAX [id number] Harriet 09:15:00 09:15:00 EVISIT Seybol d 2022-08-18 2022-08-18 Outpatient HARRIET KEITH [id number] Harriet 00:00:00 00:00:00 DIEGO Seyb old 2022-08-18 2022-08-18 Outpatient HARRIET KEITH [id number] Harriet 00:00:00 00:00:00 DIEGO Seyb old 2022-08-17 2022-08-17 Outpatient HARRIET KEITH [id number] Harriet 00:00:00 00:00:00 DIEGO Seyb old 2022-06-22 2022-06-22 Outpatient HARRIET KEITH [id number] Harriet 00:00:00 00:00:00 DIEGO Seyb old 2022-06-20 2022-06-20 Outpatient HARRIET KEITH [id number] Harriet 00:00:00 00:00:00 DIEGO Seyb old 2022-06-06 2022-06-06 Telemedici Jo-Ann Velasco [facility] [id number] Harriet 10:15:00 10:22:09 ne M AT THE [id number] [facility] SHOPS AT [id number] [place] [id number] CURLEW [id number] 2022-06-02 2022-06-02 Outpatient HARRIET KEITH [id number] Harriet 00:00:00 00:00:00 DIEGO Seyb old 2022 2022 Outpatient HARRIET KEITH [id number] Harriet 00:00:00 00:00:00 DIEGO Seyb old 2022-05-13 2022-05-13 Outpatient HARRIET KEITH [id number] Harriet 00:00:00 00:00:00 DIEGO Seyb old 2022-01-25 2022-01-25 Outpatient HARRIET KEITH [id number] Harriet 00:00:00 00:00:00 DIEGO Seyb old 2022-01-19 2022-01-19 Outpatient HARRIET KEITH [id number] [place] 00:00:00 00:00:00 DIEGO Seyb old 2022-01-17 2022-01-17 Outpatient HARRIET KEITH [id number] [place] 00:00:00 00:00:00 DIEGO Seyb old 2021-12-27 2021-12-27 Outpatient HARRIET KEITH [id number] [place] 00:00:00 00:00:00 DIEGO Seyb old 2021-12-06 2021-12-06 Outpatient HARRIET KEITH [id number] [place] 00:00:00 00:00:00 DIEGO Seyb old 2021-11-26 2021-11-26 Outpatient HARRIET KEITH [id number] [place] 00:00:00 00:00:00 DIEGO Seyb old 2021-11-23 2021-11-23 Outpatient HARRIET KEITH [id number] [place] 00:00:00 00:00:00 DIEGO Seyb old 2021-11-11 2021-11-11 Outpatient HARRIET KEITH [id number] [place] 09:00:00 09:00:00 DIEGO Seyb old 2021-11-09 2021-11-09 Outpatient HARRIET KEITH [id number] [place] 16:00:00 16:00:00 DIEGO Seyb old 2021-11-09 2021-11-09 [facility] LASHAWN KEITH [id number] [place] 16:00:00 16:00:00 ne DIEGO 350.1.13.13 Seybold [id number] 2021-11-03 2021-11-03 Outpatient HARRIET KEITH [id number] [place] 00:00:00 00:00:00 DIEGO Seyb old 2021-10-13 2021-10-13 Outpatient HARRIET KEITH [id number] [place] 00:00:00 00:00:00 DIEGO Seyb old 2021-05-24 2021-05-24 Outpatient HARRIET KEITH [id number] [place] 00:00:00 00:00:00 DIEGO Seyb old 2021-05-24 2021-05-24 Outpatient HARRIET KEITH [id number] [place] 00:00:00 00:00:00 DIEGO Seyb old 2021-03-05 2021-03-05 Outpatient Eduardo [facility] [id number] [place] 04:05:00 07:50:00 [facility]ENCE [facility] 2021-02-13 2021-02-13 Outpatient Kelin [facility] [id number] [facility] 08:25:00 08:10:05 MARY [facility] 2021-01-23 2021-01-23 Outpatient [facility] [id number] [facility] 08:45:00 08:45:00 [facility] 2020-08-28 2020-08-28 Outpatient [facility] [id number] [place] 04:13:00 06:45:00 TERRENCE [facility] 2019-06-14 2019-06-14 Refill [place], [facility] [id number] 00:00:00 00:00:00 Desiree Nelson [facility] [id number] [facility] [id number] [place] [id number] 2019-06-14 2019-06-14 Refill [place], [facility] [id number] [facility] 00:00:00 00:00:00 Desiree Nelson [facility] 350.1.13.10 ity of [facility] [place] [facility] [id number] [place] [id number] [place] 2019-05-01 2019-05-01 Emergency [facility] [place] [id number] [place] [address] 00:00:00 00:00:00 [facility] [address] 2019-04-15 2019-04-15 Emergency E [facility] [id number] [facility] 10:36:00 10:36:00 2019-02-08 2019-02-08 Emergency E [facility] [id number] [facility] 13:12:00 13:12:00 2018-03-28 2018-03-28 Outpatient [facility] [id number] [place] 08:23:00 10:35:00 [facility] Results Test Description Test Time [...] code = 963) 1+ few COMPREHENSIVE METABOLIC [id number] 16:26:00 Test Item Value Reference Range Interpretation [...] DATA T O CALCULATE ESTIM ATED GFR. [id number] 16:26:00 Test Item Value Reference Range Interpretation Comments MAGNESIUM (BEAKER) (test code = 2.4 mg/dL 1.5-3.0 627) [id number] 16:26:00 Test Item Value Reference Range Interpretation Comments PHOSPHORUS (BEAKER) (test code = 3.6 mg/dL 2.5-4.5 604) RAPID DRUG SCREEN, [id number] 16:12:00 Test Item Value Reference Range Interpretation [...] ng/mLOpiate 300 ng/mLMethadone 300 ng/mLAmphetamine/ 1000 ng/mL MethamphetamineThisassay provides an unconfirmed qualitative test result for the clinical management of patients in emergency situations. Chain of custody not maintained. Some bmow-nwt-xvjaiyj medications, as well as adulterants, may cause inaccurate results. Clinical correlation should be applied. A more comprehensive drug screen or confirmation of a detected drug may be performed upon request.URINALYSIS W/ [id number] 16:03:00 Test Item Value Reference Range Interpretation [...] code = 1663) SOURCE(BEAKER) (test code = 5352)
== END 2022-11-08 01:38 | disposition left against medical advice (07) ==
LOC: ER 00:31
DX: Z02.9 Encounter for administrative examinations, unspecified (principal)